=== PATIENT | female | born 1970 | race American Indian/Alaskan Native ===

== ENCOUNTER 2016-08-17 05:36 | Emergency (ER) | payer OTHER ==
[2016-08-17] MEDS ORDERED: DUONEB 0.5 MG-3 MG/3 ML SOLN IH ONE ×2 (06:53→06:55)
[2016-08-17] MEDS ORDERED: NORCO 5/325 PO ONE (08:12)
[2016-08-17] MEDS ORDERED: DELTASONE PO ONE (08:12)
--- NOTE | 2016-08-17 09:43 | XRay Report ---
AP CHEST: HISTORY: Cough AP view of the chest demonstrates a normal mediastinal and cardiac contour with clear lungs and normal bony and soft tissue structures. IMPRESSION: Unremarkable AP chest. No significant change since 11/15/15.
--- NOTE | 2016-08-17 10:20 | Emergency Department Report ---
ED General Adult HPI - General Chief complaint: Adult Asthma Stated complaint: HUGO/ASTHMA Time Seen by Provider: 08/17/16 06:51 Source: patient Mode of arrival: Wheelchair Limitations: No Limitations - History of Present Illness Initial comments: She presents for persistent wheezing. She states she has run out of her medicine. She also states that she was given a prescription for a Z-Vinh on a recent emergency department visit. She does not smoke. She's had no fever or chills. She states her chest is occasionally sore with coughing. She denies pleuritic pain. She denies hemoptysis. She states that she does produce yellow sputum. She's had no leg swelling or pain. -: Gradual, week(s) Location: chest (only on cough) Radiation: non-radiation Quality: other Consistency: intermittent, now resolved Improves with: none Worsens with: other (only on cough) Associated Symptoms: denies other symptoms - Related Data Home Medications Medication Instructions Recorded Confirmed Last Taken Fluticasone/Salmeterol [Advair 1 puff IH BID 07/21/15 08/17/16 11/14/15 Diskus 500-50 mcg] Ipratropium Bath [Atrovent Hfa] 12.9 gm IH BID PRN 07/21/15 08/17/16 11/14/15 Montelukast [Singulair] 10 mg PO QPM 07/21/15 08/17/16 11/14/15 Previous Rx's Medication Instructions Recorded Last Taken Type ALBUTEROL Inhaler [ProAir HFA 2 puff IH QID PRN #1 inha 09/01/15 11/14/15 Rx Inhaler] Ipratropium [Atrovent NEB] 0.5 mg IH Q4HR PRN #20 nebu 11/10/15 11/14/15 Rx Nebulizer Accessories [Aeroneb Go] 1 each QID #1 each 11/10/15 11/14/15 Rx Nebulizer [Minicomp Compressor 1 each QID #1 each 11/10/15 11/14/15 Rx Nebulizer] ALBUTEROL Inhaler [Proair] 2 puff IH QID PRN #1 inhalation 08/17/16 Unknown Rx Albuterol Sulfate [Albuterol 0.63% 0.63 mg IH TID PRN #3 ml 08/17/16 Unknown Rx NEBS] Fluticasone/Salmeterol [Advair 1 puff IH BID #1 disk.w.dev 08/17/16 Unknown Rx Diskus 250-50 mcg] Sulfamethoxazole/Trimethoprim 1 each PO BID #10 tablet 08/17/16 Unknown Rx [Bactrim DS TAB] predniSONE [Deltasone] 40 mg PO QDAY #14 tab 08/17/16 Unknown Rx Allergies Allergy/AdvReac Type Severity Reaction Status Date / Time methylprednisolone sodium Allergy Hives Verified 11/15/15 07:55 succinate [From Solu-Medrol] moxifloxacin HCl Allergy Hives Verified 11/15/15 07:55 [From Avelox] ED Review of Systems ROS: Stated complaint: HUGO/ASTHMA Other details as noted in HPI Constitutional: denies: chills, fever Eyes: denies: eye pain, eye discharge, vision change ENT: denies: ear pain, throat pain Respiratory: cough, wheezing. denies: shortness of breath Cardiovascular: as per HPI, chest pain. denies: palpitations Endocrine: no symptoms reported Gastrointestinal: denies: abdominal pain, nausea, diarrhea Genitourinary: denies: urgency, dysuria, discharge Musculoskeletal: denies: back pain, joint swelling, arthralgia Skin: denies: rash, lesions Neurological: denies: headache, weakness, paresthesias Psychiatric: denies: anxiety, depression Hematological/Lymphatic: denies: easy bleeding, easy bruising ED Past Medical Hx - Past Medical History Previous Medical History?: Yes Hx Hypertension: No Hx Congestive Heart Failure: No Hx Diabetes: No Hx Sickle Cell Disease: No Hx Arthritis: (intubated x 4) Hx Seizures: No Hx Asthma: Yes Hx COPD: No Hx HIV: No Additional medical history: OBESITY. HERNIA X 2 - Surgical History Past Surgical History?: Yes Hx Cholecystectomy: Yes Additional Surgical History: HERNIA SURGERY; C SECTION - Social History Smoking Status: Unknown if ever smoked Substance Use Type: None - Medications Home Medications: Home Medications Medication Instructions Recorded Confirmed Last Taken Type Fluticasone/Salmeterol [Advair 1 puff IH BID 07/21/15 08/17/16 11/14/15 History Diskus 500-50 mcg] Ipratropium Bath [Atrovent Hfa] 12.9 gm IH BID PRN 07/21/15 08/17/16 History Montelukast [Singulair] 10 mg PO QPM 07/21/15 08/17/16 11/14/15 History ALBUTEROL Inhaler [ProAir HFA 2 puff IH QID PRN #1 inha 09/01/15 08/17/16 Rx Inhaler] Ipratropium [Atrovent NEB] 0.5 mg IH Q4HR PRN #20 nebu 11/10/15 08/17/16 Rx Nebulizer Accessories [Aeroneb Go] 1 each QID #1 each 11/10/15 08/17/1611/13 Rx Nebulizer [Minicomp Compressor 1 each QID #1 each 11/10/15 08/17/16 11/14/15 Rx Nebulizer] ALBUTEROL Inhaler [Proair] 2 puff IH QID PRN #1 inhalation 08/17/16 Unknown Rx Albuterol Sulfate [Albuterol 0.63% 0.63 mg IH TID PRN #3 ml 08/17/16 Unknown Rx NEBS] Fluticasone/Salmeterol [Advair 1 puff IH BID #1 disk.w.dev 08/17/16 Unknown Rx Diskus 250-50 mcg] Sulfamethoxazole/Trimethoprim 1 each PO BID #10 tablet 08/17/16 Unknown Rx [Bactrim DS TAB] predniSONE [Deltasone] 40 mg PO QDAY #14 tab 08/17/16 Unknown Rx ED Physical Exam - General Limitations: No Limitations General appearance: alert, in no apparent distress - Head Head exam: Present: atraumatic, normocephalic - Eye Eye exam: Present: normal appearance. Absent: scleral icterus - ENT ENT exam: Present: mucous membranes moist - Neck Neck exam: Present: normal inspection - Respiratory Respiratory exam: Present: normal lung sounds bilaterally. Absent: respiratory distress - Cardiovascular Cardiovascular Exam: Present: regular rate, normal rhythm. Absent: systolic murmur, diastolic murmur, rubs, gallop - GI/Abdominal GI/Abdominal exam: Present: soft, normal bowel sounds - Extremities Exam Extremities exam: Present: normal inspection - Back Exam Back exam: Present: normal inspection - Neurological Exam Neurological exam: Present: alert, oriented X3 - Psychiatric Psychiatric exam: Present: normal affect, normal mood - Skin Skin exam: Present: warm, dry, intact, normal color. Absent: rash ED Course Vital Signs 08/17/16 08/17/16 08/17/16 05:42 06:08 06:22 Temperature 99.5 F 99.5 F Pulse Rate 99 H 90 Pulse Rate [ Bilateral] Respiratory 26 H 22 22 Rate Respiratory Rate [Bilateral ] Blood Pressure 138/95 Blood Pressure 146/88 [Right] O2 Sat by Pulse 100 96 96 Oximetry 08/17/16 08/17/16 08/17/16 07:10 07:25 07:28 Temperature Pulse Rate Pulse Rate [ 91 H 88 84 Bilateral] Respiratory Rate Respiratory 20 19 18 Rate [Bilateral ] Blood Pressure Blood Pressure [Right] O2 Sat by Pulse Oximetry 08/17/16 07:35 Temperature Pulse Rate Pulse Rate [ 91 H Bilateral] Respiratory Rate Respiratory 18 Rate [Bilateral ] Blood Pressure Blood Pressure [Right] O2 Sat by Pulse Oximetry - Reevaluation(s) Reevaluation #1: Given nebs prior to my encounter. The patient had no recurrent wheezing. She has some slight residual rhonchi. However her sat was good. She desired discharge and was released in stable condition. We over her chronic management and return criteria discussed. 08/17/16 10:19 ED Medical Decision Making - Lab Data See Accu-Chek result - Radiology Data interpreted by me: Chest x-ray no acute process Critical care attestation.: If time is entered above; I have spent that time in minutes in the direct care of this critically ill patient, excluding procedure time. ED Disposition Clinical Impression: Asthma exacerbation Chronic bronchitis Qualifiers: Chronic bronchitis type: unspecified Qualified Code(s): J42 - Unspecified chronic bronchitis Disposition: DISCHARGED TO HOME OR SELFCARE Is pt being admited?: No Does the pt Need Aspirin: No Condition: Stable Instructions: Asthma (ED), Chronic Bronchitis (ED) Prescriptions: ALBUTEROL Inhaler [Proair] 2 puff IH QID PRN #1 inhalation PRN Reason: Shortness Of Breath Albuterol Sulfate [Albuterol 0.63% NEBS] 0.63 mg IH TID PRN #3 ml PRN Reason: Wheezing Fluticasone/Salmeterol [Advair Diskus 250-50 mcg] 1 puff IH BID #1 disk.w.dev Sulfamethoxazole/Trimethoprim [Bactrim DS TAB] 1 each PO BID #10 tablet predniSONE [Deltasone] 40 mg PO QDAY #14 tab Referrals: [facility] [Provider Group] - 3-5 Days PRIMARY CARE, [Primary Care Provider] - 2-3 Days Time of Disposition: 10:21
[2016-08-17 10:58] VITALS: BP 138/78
== END 2016-08-17 11:01 | disposition home or self-care (01) ==
LOC: ED 05:36
DX: J45.901 Unspecified asthma with (acute) exacerbation (principal); J44.9 Chronic obstructive pulmonary disease, unspecified; Z90.49 Acquired absence of other specified parts of digestive tract
CPT/HCPCS: 71010; 82962; 94640; 99284; J7512

== ENCOUNTER 2017-11-08 11:52 | Inpatient (IN) | payer OTHER ==
--- NOTE | 2017-11-08 13:11 | Emergency Department Report ---
ED Abdominal Pain HPI - General Chief Complaint: Abdominal Pain Stated Complaint: ABD PAIN Time Seen by Provider: 11/08/17 12:55 Source: EMS Mode of arrival: Stretcher Limitations: No Limitations - History of Present Illness Initial Comments: Patient is a 47-year-old female presents to emergency room with nausea vomiting diarrhea and abdominal pain 1 day. Patient states the pain is worsening. Patient states that the abdominal pain is umbilical and radiates to her left and right side of her abdomen. Patient states she feels feverish at times. patient denies chest pain or shortness of breath. Patient complains of a worsening cough that started 2 days ago. Patient states she has asthma and her asthma is worsening. Patient states the abdominal pain is worse with movement and palpation. Patient states the abdominal pain is better with rest and lying still. Patient states that her cough is better with her asthma medications and sitting up upright. Patient is currently at anchor on a 1013 and has her sitter at bedside MD Complaint: abdominal pain -: Sudden Location: periumbilical Severity scale (0 -10): 10 Quality: cramping, stabbing Consistency: constant Improves With: rest Worsens With: movement Associated Symptoms: denies other symptoms, nausea, vomiting, diarrhea. denies : fever, chills, constipation, dysuria, hematemesis, hematochezia, melena, hematuria, anorexia, syncope - Related Data Home Medications Medication Instructions Recorded Confirmed Last Taken ALPRAZolam [Xanax] 1 mg PO BID 11/08/17 11/08/17 Unknown ARIPiprazole [Abilify] 5 mg PO BID 11/08/17 11/08/17 Unknown Furosemide [Lasix] 20 mg PO QDAY 11/08/17 11/08/17 Unknown HYDROcodone/APAP 5-325 [[place] 1 each PO TID 11/08/17 11/08/17 Unknown 5/325] Nitrofurantoin Macrocrystal 100 mg PO BID 11/08/17 11/08/17 Unknown [Macrodantin] Omeprazole 40 mg PO QAM 11/08/17 11/08/17 Unknown buPROPion XL [Wellbutrin XL] 150 mg PO QAM 11/08/17 11/08/17 Unknown Previous Rx's Medication Instructions Recorded Last Taken Type Fluticasone/Salmeterol [Advair 1 puff IH BID #1 disk.w.dev 01/15/17 Unknown Rx Diskus 250-50 mcg] Allergies Allergy/AdvReac Type Severity Reaction Status Date / Time methylprednisolone sodium Allergy Hives Verified 11/15/15 07:55 succinate [From Solu-Medrol] moxifloxacin HCl Allergy Hives Verified 11/15/15 07:55 [From Avelox] ED Review of Systems ROS: Stated complaint: ABD PAIN Other details as noted in HPI Comment: All other systems reviewed and negative Constitutional: fever. denies: chills Eyes: denies: eye pain, eye discharge, vision change ENT: denies: ear pain, throat pain Respiratory: cough, wheezing. denies: shortness of breath Cardiovascular: denies: chest pain, palpitations Endocrine: no symptoms reported Gastrointestinal: abdominal pain, nausea, diarrhea. denies: constipation, hematemesis, melena Genitourinary: denies: urgency, dysuria, discharge Musculoskeletal: denies: back pain, joint swelling, arthralgia Skin: denies: rash, lesions Neurological: denies: headache, weakness, paresthesias Psychiatric: denies: anxiety, depression Hematological/Lymphatic: denies: easy bleeding, easy bruising ED Past Medical Hx - Past Medical History Previous Medical History?: Yes Hx Hypertension: No Hx Congestive Heart Failure: No Hx Diabetes: No Hx Sickle Cell Disease: No Hx Arthritis: (intubated x 4) Hx Seizures: No Hx Asthma: Yes Hx COPD: No Hx HIV: No Additional medical history: OBESITY. HERNIA X 2 - Surgical History Past Surgical History?: Yes Hx Cholecystectomy: Yes Additional Surgical History: HERNIA SURGERY; C SECTION - Family History Family history: hypertension - Social History Smoking Status: Never Smoker Substance Use Type: Alcohol - Medications Home Medications: Home Medications Medication Instructions Recorded Confirmed Last Taken Type Fluticasone/Salmeterol [Advair 1 puff IH BID #1 disk.w.dev 08/17/16 11/08/17 Unknown Rx Diskus 250-50 mcg] ALPRAZolam [Xanax] 1 mg PO BID 11/08/17 11/08/17 Unknown History ARIPiprazole [Abilify] 5 mg PO BID 11/08/17 11/08/17 Unknown History Furosemide [Lasix] 20 mg PO QDAY 11/08/17 11/08/17 Unknown History HYDROcodone/APAP 5-325 [[place] 1 each PO TID 11/08/17 11/08/17 Unknown History 5/325] Nitrofurantoin Macrocrystal 100 mg PO BID 11/08/17 11/08/17 Unknown History [Macrodantin] Omeprazole 40 mg PO QAM 11/08/17 11/08/17 Unknown History buPROPion XL [Wellbutrin XL] 150 mg PO QAM 11/08/17 11/08/17 Unknown History ED Physical Exam - General Limitations: No Limitations General appearance: alert, in no apparent distress - Head Head exam: Present: atraumatic, normocephalic - Eye Eye exam: Present: normal appearance - ENT ENT exam: Present: mucous membranes moist - Neck Neck exam: Present: normal inspection - Respiratory Respiratory exam: Present: normal lung sounds bilaterally. Absent: respiratory distress - Cardiovascular Cardiovascular Exam: Present: regular rate, normal rhythm. Absent: systolic murmur, diastolic murmur, rubs, gallop - GI/Abdominal GI/Abdominal exam: Present: soft, tenderness (umbilical and periumbilical tenderness to palpation. ), normal bowel sounds, hernia (umbilical hernia noted and not reducible and extremely tender to palpation) - Extremities Exam Extremities exam: Present: normal inspection - Back Exam Back exam: Present: normal inspection - Neurological Exam Neurological exam: Present: alert, oriented X3 - Psychiatric Psychiatric exam: Present: normal affect, normal mood - Skin Skin exam: Present: warm, dry, intact, normal color. Absent: rash ED Course Vital Signs 11/08/17 11/08/17 11/08/17 12:29 12:32 12:45 Temperature 99.3 F Pulse Rate 97 H Respiratory Rate Blood Pressure 126/64 123/74 114/72 O2 Sat by Pulse 96 96 Oximetry 11/08/17 11/08/17 11/08/17 13:00 13:15 13:31 Temperature Pulse Rate 92 H Respiratory 15 Rate Blood Pressure 110/72 107/69 114/72 O2 Sat by Pulse 92 93 95 Oximetry 11/08/17 11/08/17 11/08/17 13:45 13:55 14:00 Temperature Pulse Rate 94 H 89 Respiratory 24 33 H 32 H Rate Blood Pressure 114/72 103/57 O2 Sat by Pulse 96 98 93 Oximetry 04/08/18 04/08/18 04/08/18 15:01 16:00 16:42 Temperature Pulse Rate 84 Respiratory Rate Blood Pressure 103/57 108/79 O2 Sat by Pulse 98 95 Oximetry 11/08/17 11/08/17 17:00 18:00 Temperature Pulse Rate Respiratory Rate Blood Pressure 102/48 116/74 O2 Sat by Pulse 87 98 Oximetry - Reevaluation(s) Reevaluation #1: Dr Foley consulted for non-reducible umbilica hernia and abd pain. Dr Foley recommends admission to the hospitalist and have the hospitalist consult her for evaluation and treatment. 11/08/17 15:34 Reevaluation #2: Hospitalist consulted for admission. All results discussed with the patient and patient agree with plan of care. 11/08/17 15:37 Reevaluation #3: 1013 signed due to the fact that the patient is currently at a psych facility for suicidal ideations and treatment 11/08/17 17:00 ED Medical Decision Making - Lab Data Result diagrams: 11/08/17 13:05 11/08/17 13:05 Critical care attestation.: If time is entered above; I have spent that time in minutes in the direct care of this critically ill patient, excluding procedure time. Critical Care Time: 45 minutes spent for critical care time ED Disposition Clinical Impression: Incarcerated umbilical hernia, Anemia, Abdominal pain, Cough, Asthma exacerbation Disposition: OP ADMIT IP TO THIS HOSP Is pt being admited?: Yes Does the pt Need Aspirin: No Time of Disposition: 15:45
[2017-11-08 13:25] LABS: Basophils % (Auto) 0.1 % (0.0-1.8); Eosinophils # (Auto) 0.5 K/mm3 (0.0-0.4); Eosinophils % (Auto) 4.4 % (0.0-4.3); Hematocrit 31.7 % (30.3-42.9); Hemoglobin 9.8 gm/dl (10.1-14.3); Lymphocytes # (Auto) 1.1 K/mm3 (1.2-5.4); Lymphocytes % (Auto) 9.8 % (13.4-35.0); Mean Corpuscular HGB Conc 31 % (30-34); Mean Corpuscular Hemoglobin 22 pg (28-32); Mean Corpuscular Volume 70 fl (79-97); Monocytes # (Auto) 0.7 K/mm3 (0.0-0.8); Monocytes % (Auto) 6.5 % (0.0-7.3); Platelet Count 147 K/mm3 (140-440); Red Blood Count 4.51 M/mm3 (3.65-5.03); Red Cell Distribution Width 16.4 % (13.2-15.2)
[2017-11-08 13:44] LABS: Alanine Aminotransferase 18 units/L (7-56); Albumin 3.5 g/dL (3.9-5); BUN/Creatinine Ratio 13; Blood Urea Nitrogen 9 mg/dL (7-17); Calcium 8.3 mg/dL (8.4-10.2); Hemolysis Index 0; Lipase 11 units/L (13-60)
[2017-11-08] MEDS ORDERED: TORADOL ONE (13:59)
[2017-11-08] MEDS ORDERED: TORADOL IV ONE (13:59)
[2017-11-08 14:38] LABS: Bacteria,Urine 1+ /HPF (Negative); Bilirubin,Urine NEG (Negative); Blood,Urine NEG (Negative); Color,Urine Yellow (Yellow); Protein,Urine <15 mg/dL mg/dL (Negative); Urobilinogen,Urine < 2.0 mg/dL (<2.0)
--- NOTE | 2017-11-08 14:42 | Cat Scan Report ---
FINAL REPORT PROCEDURE: CT ABDOMEN PELVIS WO CON TECHNIQUE: Computerized axial tomography of the abdomen and pelvis was performed without intravenous contrast. This study is performed without intravascular contrast material and its sensitivity for abdominal and pelvic pathology, including neoplasms, inflammation, abscess, free fluid, thrombosis, arterial dissection and infarction, is reduced compared with a contrast enhanced study. HISTORY: abd pain COMPARISON: No prior studies are available for comparison. FINDINGS: Lower Lung mcclure: There are minimal linear bands of atelectasis visualized. Lung bases otherwise are. Upper Abdomen: Moderate size hiatal hernia is present. The liver showed no focal abnormalities. The gallbladder is surgically absent. The adrenal glands, the pancreas and the spleen are unremarkable. Kidneys, Ureters and Urinary bladder: There are 2 nonobstructing calculi in the upper half of the right kidney, 1 measures 1.4 x 1.0 centimeter the other 4.7 millimeters. The right kidney and right ureter otherwise are unremarkable. Left kidney left ureter and urinary bladder show no focal abnormalities. Retroperitoneum: Atherosclerotic changes are seen in the abdominal aorta. No aneurysm is visualized. Nonspecific subcentimeter lymph nodes are seen in the retroperitoneum. No pathologically enlarged lymph nodes are identified. Bowel: Mild diverticulosis is seen in the sigmoid colon without evidence of diverticulitis. Mild diverticulosis also seen in the transverse colon without evidence of diverticulitis. The appendix is not visualized. No evidence of bowel obstruction ascites or free intraperitoneal gas. Anterior pelvic wall hernia visualized with at least 2 orifice both containing adipose tissue and portions of loops of small bowel. Reproductive organs: Uterus is deviated to the right of midline otherwise unremarkable. No abnormal adnexal masses are identified. Other: No acute bony abnormalities are seen. IMPRESSION: Moderate size hiatal hernia present. Moderate-sized anterior pelvic wall hernia with at least 2 orifice containing adipose tissue and loops of small bowel without obstruction.. Prior cholecystectomy. Nonobstructing renal calculi right kidney as described.
--- NOTE | 2017-11-08 14:46 | XRay Report ---
FINAL REPORT EXAM: XR CHEST 1V AP HISTORY: cough TECHNIQUE: upright single view chest PRIORS: None. FINDINGS: Cardiac and mediastinal contours are unremarkable. No focal pulmonary infiltrate is identified. No pleural fluid collection seen. Pulmonary vasculature is unremarkable. IMPRESSION: Negative single-view chest
[2017-11-08] MEDS ORDERED: ZOFRAN IV ONE (15:40)
[2017-11-08] MEDS ORDERED: DILAUDID IV ONE (15:40)
[2017-11-08] MEDS ORDERED: ZOFRAN ONE (15:41)
[2017-11-08] MEDS ORDERED: DUONEB *Not for PRN Use IH ONE (15:41)
--- NOTE | 2017-11-08 15:53 | History and Physical Report ---
History of Present Illness Chief complaint: My stomach hurts History of present illness: 47 YO Female with Asthma, Obesity Hypoventillation Syndrome presents to ED for evaluation. Pt states that she has experienced Abdominal pain for the past 1 week, with worsening symptoms over the past 1 day. Pt acknowledges Nausea, Vomiting, and multiple episodes of loose stools with bloody bowel movements as well as a productive cough of yellow sputum. Pt denies BRBPR, CP, Palpitations, Syncope, Productive cough, unintentional weight loss, or night sweats. Pt seen and evaluated in ED and found to have incarcerated ventral hernia complicated by SIRS, as well as respiratory failure secondary to obesity hypoventillation. Surgery team consulted in ED. Pt admitted to medical floor. Past History Past Surgical History: cholecystectomy, , hernia repair Social history: single. denies: smoking, alcohol abuse, prescription drug abuse Family history: hypertension Medications and Allergies Allergies Allergy/AdvReac Type Severity Reaction Status Date / Time methylprednisolone sodium Allergy Hives Verified 11/15/15 07:55 succinate [From Solu-Medrol] moxifloxacin HCl Allergy Hives Verified 11/15/15 07:55 [From Avelox] Home Medications Medication Instructions Recorded Confirmed Last Taken Type Fluticasone/Salmeterol [Advair 1 puff IH BID #1 disk.w.dev 08/17/16 11/08/17 Unknown Rx Diskus 250-50 mcg] ALPRAZolam [Xanax] 1 mg PO BID 11/08/17 11/08/17 Unknown History ARIPiprazole [Abilify] 5 mg PO BID 11/08/17 11/08/17 Unknown History Furosemide [Lasix] 20 mg PO QDAY 11/08/17 11/08/17 Unknown History HYDROcodone/APAP 5-325 [[place] 1 each PO TID 11/08/17 11/08/17 Unknown History 5/325] Nitrofurantoin Macrocrystal 100 mg PO BID 11/08/17 11/08/17 Unknown History [Macrodantin] Omeprazole 40 mg PO QAM 11/08/17 11/08/17 Unknown History buPROPion XL [Wellbutrin XL] 150 mg PO QAM 11/08/17 11/08/17 Unknown History Review of Systems Constitutional: fever, no weight loss, no weight gain, no chills, no sweats Ears, nose, mouth and throat: no ear pain, no ear discharge, no tinnitis, no decreased hearing, no nose pain, no nasal congestion, no nasal discharge Breasts: no change in shape, no swelling, no mass Cardiovascular: no chest pain, no orthopnea, no palpitations, no rapid/ irregular heart beat Respiratory: cough with sputum, shortness of breath Gastrointestinal: abdominal pain, nausea, vomiting, diarrhea, BRBPR, no melena, no hematochezia, no loss of appetite, no early satiety Genitourinary Female: no dysmenorrhea, no pelvic pain, no menorrhagia, no dysuria, no urinary frequency Rectal: no pain, no incontinence, no bleeding Musculoskeletal: no neck stiffness, no neck pain, no shooting arm pain, no arm numbness/tingling, no low back pain, no shooting leg pain, no leg numbness/ tingling, no redness of joints Integumentary: no rash, no pruritis, no redness, no sores, no wounds, no jaundice Neurological: no head injury, no transient paralysis, no paralysis, no weakness , no parathesias, no numbness, no tingling, no seizures, no syncope Psychiatric: no anxiety, no memory loss, no change in sleep habits, no sleep disturbances, no insomnia, no hypersomnia, no change in appetite, no change in libido, no suicidal ideation Endocrine: no cold intolerance, no heat intolerance, no polyphagia, no excessive thirst, no polydipsia, no polyuria, no nocturia, no excessive sweating Hematologic/Lymphatic: no easy bruising, no easy bleeding, no lymphadenopathy, no lymphedema Allergic/Immunologic: no urticaria, no allergic rhinitis, no wheezing, no persistent infections, no anaphylaxis Exam - Constitutional Vitals: Temp Pulse Resp BP Pulse Ox 99.3 F 89 32 H 103/57 93 11/08/17 12:29 11/08/17 14:00 11/08/17 14:00 11/08/17 14:00 11/08/17 14:00 General appearance: Present: mild distress, obese - EENT Eyes: Present: PERRL ENT: hearing intact, clear oral mucosa - Neck Neck: Present: supple, normal ROM - Respiratory Respiratory effort: normal Respiratory: bilateral: diminished, wheezing - Cardiovascular Heart Sounds: Present: S1 & S2. Absent: rub, click - Extremities Extremities: pulses symmetrical, No edema Peripheral Pulses: within normal limits - Abdominal General gastrointestinal: Present: soft, tender, non-distended Localized gastrointestinal: tender: epigastric periumbilical - Rectal Rectal Exam: normal exam-external/orifice - Integumentary Integumentary: Present: clear, warm, dry - Musculoskeletal Musculoskeletal: gait normal, strength equal bilaterally - Psychiatric Psychiatric: appropriate mood/affect, intact judgment & insight - Neurologic Neurologic: CNII-XII intact, moves all extremities Results - Labs CBC & Chem 7: 11/08/17 13:05 11/08/17 13:05 Labs: Abnormal lab results 11/08/17 11/08/17 11/08/17 Range/Units 13:05 13:05 13:16 WBC 11.3 H (4.5-11.0) K/mm3 Hgb 9.8 L (10.1-14.3) gm/dl MCV 70 L (79-97) fl MCH 22 L (28-32) pg RDW 16.4 H (13.2-15.2) % Lymph % (Auto) 9.8 L (13.4-35.0) % Eos % (Auto) 4.4 H (0.0-4.3) % Lymph # 1.1 L (1.2-5.4) K/mm3 Eos # 0.5 H (0.0-0.4) K/mm3 Seg Neutrophils % 79.2 H (40.0-70.0) % Seg Neutrophils # 9.0 H (1.8-7.7) K/mm3 Chloride 95.2 L (98-107) mmol/L Glucose 133 H (65-100) mg/dL Calcium 8.3 L (8.4-10.2) mg/dL Albumin 3.5 L (3.9-5) g/dL Lipase 11 L (13-60) units/L Urine pH 8.0 H (5.0-7.0) Assessment and Plan - Patient Problems (1) SIRS (systemic inflammatory response syndrome) Current Visit: Yes Status: Acute Plan to address problem: IV antibiotics, Chest X ray, UTI, CT abdomen pelvis, supportive care. (2) Umbilical hernia, incarcerated Current Visit: Yes Status: Acute Plan to address problem: Surgery consulted, NPO after midnight, possible surgical intervention in AM. (3) Respiratory failure Current Visit: Yes Status: Acute Qualifiers: Chronicity: acute Respiratory failure complication: hypoxia Qualified Code(s): J96.01 - Acute respiratory failure with hypoxia Plan to address problem: Suplemental oxygen, nebulizer therapy, aspiration precautions, incentive spirometry, NIPPV as clinically indicated. (4) Asthma exacerbation Current Visit: Yes Status: Acute Plan to address problem: supplemental oxygen, nebulizer therapy, inhaled steroids, IV antibiotics, pulse oximetry (5) DVT prophylaxis Current Visit: Yes Status: Acute Plan to address problem: SCD to BLE while in bed,
[2017-11-08] MEDS ORDERED: SODIUM CHLORIDE FLUSH SYRINGE 10 ML IV PRN (16:28)
[2017-11-08] MEDS ORDERED: ZOFRAN IV PRN (16:28)
[2017-11-08] MEDS ORDERED: ZITHROMAX 500 MG in NACL 0.9% 250ML 250 ML IV SCH (17:00)
--- NOTE | 2017-11-08 17:01 | Consultation ---
History of Present Illness Consult date: 11/08/17 Chief complaint: abd pain, hernia - History of present illness History of present illness: 47 yo F with hx of asthma, COPD, obesity presents to ER from psychiatric facility for abdominal pain. She states she has had a left sided abdominal hernia for 1 year. This has started to cause her pain for the last several days. She is on lortab for the chronic pain but this has not been helping recently. The pain is constant, sharp, and radiates to the rest of the abdomen. She admits to n/v, and diarrhea. She states she notes blood in her BMs. She was able to have dinner last night. This exacerbated the pain. She states she has been having low grade fevers and was also recently diagnosed with a UTI for which she has been on bactrim for 2 days. At this time she denies n/v and is hungry. She denies cp, sob. She has a productive cough of yellow sputum. Patient has been in the psychiatric facility for the last week or so for suicidal ideations. Currently she does not admit to wanting to hurt herself. Past History Past Medical History: COPD, other (obesity, asthma, anxiety, suicidal ideations) Past Surgical History: cholecystectomy, , Other (exlap for incarcerated hernia) Social history: alcohol abuse (social). denies: smoking Family history: no significant family history Medications and Allergies Allergies Allergy/AdvReac Type Severity Reaction Status Date / Time methylprednisolone sodium Allergy Hives Verified 11/15/15 07:55 succinate [From Solu-Medrol] moxifloxacin HCl Allergy Hives Verified 11/15/15 07:55 [From Avelox] Home Medications Medication Instructions Recorded Confirmed Last Taken Type Fluticasone/Salmeterol [Advair 1 puff IH BID #1 disk.w.dev 08/17/16 11/08/17 Unknown Rx Diskus 250-50 mcg] ALPRAZolam [Xanax] 1 mg PO BID 11/08/17 11/08/17 Unknown History ARIPiprazole [Abilify] 5 mg PO BID 11/08/17 11/08/17 Unknown History Furosemide [Lasix] 20 mg PO QDAY 11/08/17 11/08/17 Unknown History HYDROcodone/APAP 5-325 [[place] 1 each PO TID 11/08/17 11/08/17 Unknown History 5/325] Nitrofurantoin Macrocrystal 100 mg PO BID 11/08/17 11/08/17 Unknown History [Macrodantin] Omeprazole 40 mg PO QAM 11/08/17 11/08/17 Unknown History buPROPion XL [Wellbutrin XL] 150 mg PO QAM 11/08/17 11/08/17 Unknown History Active Meds: Active Medications Acetaminophen (Tylenol) 650 mg PO Q4H PRN PRN Reason: Pain MILD(1-3)/Fever >100.5/MELENDEZ Albuterol (Proventil) 2.5 mg IH Q4HRT PRN PRN Reason: Shortness Of Breath Budesonide (Pulmicort) 0.5 mg IH Q12HRT [facility] Azithromycin 500 mg/ Sodium (Chloride) 250 mls @ 250 mls/hr IV Q24H [facility] Methylprednisolone Sodium Succinate (Solu-Medrol) 40 mg IV Q12H [facility] Methylprednisolone Sodium Succinate (Solu-Medrol) 125 mg IV ONCE ONE Stop: 11/08/17 17:01 Montelukast Sodium (Singulair) 10 mg PO QPM [facility] Ondansetron HCl (Zofran) 4 mg IV Q8H PRN PRN Reason: Nausea And Vomiting Oxycodone/Acetaminophen (Percocet 5/325) 1 tab PO Q6H PRN PRN Reason: Pain, Moderate (4-6) Sodium Chloride (Sodium Chloride Flush Syringe 10 Ml) 10 ml IV BID [facility] Sodium Chloride (Sodium Chloride Flush Syringe 10 Ml) 10 ml IV PRN PRN PRN Reason: LINE FLUSH Review of Systems All systems: negative (10 point ROS performed and negative except for listed above in HPI) Exam Vital Signs Temp Pulse BP Pulse Ox 99.3 F 97 H 126/64 96 11/08/17 12:29 11/08/17 12:29 11/08/17 12:29 11/08/17 12:29 Narrative exam: Gen: AAOx3. NAD CV: S1, S2+, no m/r/g Resp: +expiratory wheezes b/l Abd: soft, obese, generalized TTP. Left sided abdominal wall hernia soft, tender to palpation, no skin changes. Reducible but reoccurs. No r/r/g. Well healed surgical scar. Ext: no c/c/e Results - Labs 11/08/17 13:05 11/08/17 13:05 Abnormal lab results 11/08/17 11/08/17 11/08/17 Range/Units 13:05 13:05 13:16 WBC 11.3 H (4.5-11.0) K/mm3 Hgb 9.8 L (10.1-14.3) gm/dl MCV 70 L (79-97) fl MCH 22 L (28-32) pg RDW 16.4 H (13.2-15.2) % Lymph % (Auto) 9.8 L (13.4-35.0) % Eos % (Auto) 4.4 H (0.0-4.3) % Lymph # 1.1 L (1.2-5.4) K/mm3 Eos # 0.5 H (0.0-0.4) K/mm3 Seg Neutrophils % 79.2 H (40.0-70.0) % Seg Neutrophils # 9.0 H (1.8-7.7) K/mm3 Chloride 95.2 L (98-107) mmol/L Glucose 133 H (65-100) mg/dL Calcium 8.3 L (8.4-10.2) mg/dL Albumin 3.5 L (3.9-5) g/dL Lipase 11 L (13-60) units/L Urine pH 8.0 H (5.0-7.0) Diabetes panel 11/08/17 Range/Units 13:05 Sodium 137 (137-145) mmol/L Potassium 4.4 (3.6-5.0) mmol/L Chloride 95.2 L (98-107) mmol/L Carbon Dioxide 29 (22-30) mmol/L BUN 9 (7-17) mg/dL Creatinine 0.7 (0.7-1.2) mg/dL Glucose 133 H (65-100) mg/dL Calcium 8.3 L (8.4-10.2) mg/dL AST 23 (5-40) units/L ALT 18 (7-56) units/L Alkaline Phosphatase 48 (35-129) units/L Total Protein 6.5 (6.3-8.2) g/dL Albumin 3.5 L (3.9-5) g/dL Calcium panel 11/08/17 Range/Units 13:05 Calcium 8.3 L (8.4-10.2) mg/dL Albumin 3.5 L (3.9-5) g/dL Pituitary panel 11/08/17 Range/Units 13:05 Sodium 137 (137-145) mmol/L Potassium 4.4 (3.6-5.0) mmol/L Chloride 95.2 L (98-107) mmol/L Carbon Dioxide 29 (22-30) mmol/L BUN 9 (7-17) mg/dL Creatinine 0.7 (0.7-1.2) mg/dL Glucose 133 H (65-100) mg/dL Calcium 8.3 L (8.4-10.2) mg/dL Adrenal panel 11/08/17 Range/Units 13:05 Sodium 137 (137-145) mmol/L Potassium 4.4 (3.6-5.0) mmol/L Chloride 95.2 L (98-107) mmol/L Carbon Dioxide 29 (22-30) mmol/L BUN 9 (7-17) mg/dL Creatinine 0.7 (0.7-1.2) mg/dL Glucose 133 H (65-100) mg/dL Calcium 8.3 L (8.4-10.2) mg/dL Total Bilirubin 0.60 (0.1-1.2) mg/dL AST 23 (5-40) units/L ALT 18 (7-56) units/L Alkaline Phosphatase 48 (35-129) units/L Total Protein 6.5 (6.3-8.2) g/dL Albumin 3.5 L (3.9-5) g/dL - Imaging CT scan - abdomen: report reviewed, image reviewed CT scan - pelvis: report reviewed, image reviewed Assessment and Plan 47 yo F with chronically incarcerated ventral hernia, obesity Plan: 1. ok to start diet, NPO p [place] 2. CT scan reviewed and compared with CT from 2015. Patient has same ventral hernia containing loops of bowel. No signs of obstruction, bowel wall thickening , or signs of bowel compromise on current CT A/P. Radiology report reviewed. 3. repeat labs in am 4. gently IVF hydration 5. PRN pain and nausea control 6. nebs and pulm toilet 7. does not need standing abx from surgical standpoint 8. DVT ppx 9. will plan for OR tomorrow 11/09. I discussed this with the patient. Laparoscopic, possible open ventral hernia repair, with mesh. D/W Dr. Espitia
[2017-11-08] MEDS ORDERED: LOVENOX SUB-Q ONE (17:34)
[2017-11-08] MEDS: LOVENOX SUB-Q SCH (18:14)
[2017-11-08] MEDS: SINGULAIR PO SCH (18:40)
[2017-11-08] MEDS: PERCOCET 5/325 PO PRN (18:47)
[2017-11-08] MEDS: PULMICORT IH SCH (20:07)
[2017-11-09] MEDS: PERCOCET 5/325 PO PRN ×2 (00:25→09:09)
[2017-11-09] MEDS: SODIUM CHLORIDE FLUSH SYRINGE 10 ML IV SCH ×3 (00:32→23:44)
[2017-11-09] MEDS: PULMICORT IH SCH ×2 (07:42→20:05)
[2017-11-09] MEDS: PROVENTIL IH PRN (07:42)
[2017-11-09] MEDS: LOVENOX SUB-Q SCH (09:48)
[2017-11-09] MEDS ORDERED: LASIX PO SCH (10:00)
[2017-11-09] MEDS ORDERED: NON-FORMULARY (Omeprazole [Omeprazole] 40 MG) PO SCH (10:00)
[2017-11-09] MEDS ORDERED: NON-FORMULARY (Fluticasone/Salmeterol [Advair Diskus 250-50 Mcg] 1 PUFF) IH SCH (10:00)
[2017-11-09] MEDS ORDERED: PROTONIX PO SCH (10:00)
[2017-11-09] MEDS ORDERED: ARIPIPRAZOLE 5 MG PO SCH (10:00)
[2017-11-09] MEDS ORDERED: MARCAINE 0.5% INFILTRATI ONE (10:21)
--- NOTE | 2017-11-09 11:12 | Anesthesia Day of Surgery ---
Anesthesia Day of Surgery - Day of Surgery Patient Examined: Yes Patient H&P Reviewed: Yes Patient is NPO: Yes
[2017-11-09] MEDS ORDERED: ZOFRAN IV PRN (11:13)
[2017-11-09] MEDS ORDERED: DILAUDID IV PRN ×2 (11:13→15:37)
--- NOTE | 2017-11-09 11:13 | Anesthesia Consultation ---
Anesthesia Consult and Med Hx - Airway Anesthetic Teeth Evaluation: Poor ROM Head & Neck: Adequate Mental/Hyoid Distance: Adequate Mallampati Class: Class III Intubation Access Assessment: Probably Good - Pulmonary Exam CTA: No (given albuterol neb for wheeze) - Cardiac Exam Cardiac Exam: RRR - Pre-Operative Health Status ASA Pre-Surgery Classification: ASA3 Proposed Anesthetic Plan: General - Pulmonary Hx Smoking: No Hx Asthma: Yes COPD: No Hx Pneumonia: No Hx Sleep Apnea: Yes (non compliant with CPAP) - Cardiovascular System Hx Hypertension: No - Central Nervous System Hx Seizures: No CVA: No Hx Psychiatric Problems: Yes (current resident at [facility] on a 1013) - Gastrointestinal Hx Gastroesophageal Reflux Disease: Yes - Endocrine Hx End Stage Renal Disease: No Hx Insulin Dependent Diabetes: No - Hematic Hx Anemia: No Hx Sickle Cell Disease: No - Other Systems Hx Cancer: No Hx Obesity: Yes (morbid obesity, BMI 43)
[2017-11-09] MEDS ORDERED: PROVENTIL IH NR (11:15)
[2017-11-09] MEDS: LACTATED RINGERS 1,000 ML IV SCH ×2 (11:46→21:43)
[2017-11-09] MEDS ORDERED: PEPCID IV NR (12:00)
[2017-11-09] MEDS ORDERED: ANCEF/STERILE WATER 2 GM/20 ML IV NR (12:00)
[2017-11-09] MEDS ORDERED: ceFAZolin 2 GM in NACL 0.9% 100 ML IV ONE (12:00)
[2017-11-09] MEDS ORDERED: VERSED IV NR (12:00)
[2017-11-09] MEDS ORDERED: XYLOCAINE MPF 2% ONE (12:18)
[2017-11-09] MEDS ORDERED: DIPRIVAN 10 MG/ML IV ONE (12:18)
[2017-11-09] MEDS ORDERED: NEOSTIGMINE ONE (12:19)
[2017-11-09] MEDS ORDERED: ZOFRAN ONE (12:19)
[2017-11-09] MEDS ORDERED: ROBINUL ONE (12:19)
[2017-11-09] MEDS ORDERED: NEO SYNEPHRINE/NS Syringe(OR USE) IV ONE (12:19)
[2017-11-09] MEDS ORDERED: ZEMURON IV ONE ×2 (12:19)
[2017-11-09] MEDS ORDERED: SUBLIMAZE ONE (12:22)
--- NOTE | 2017-11-09 13:44 | Progress Note ---
Assessment and Plan / SIRS (systemic inflammatory response syndrome) Likely from incarcerated ventral hernia Continue abx IV fluids Follow blood culture Plan for surgery today, /Umbilical hernia, incarcerated Surgery consulted, Patient is NPO after midnight, surgical intervention today. /Acute Respiratory failure Likely from asthma exacerbation Suplemental oxygen, nebulizer therapy, aspiration precautions /Acute Asthma exacerbation Continue supplemental oxygen, nebulizer therapy, inhaled steroids, IV antibiotics, Monitor with pulse oximetry / DVT prophylaxis SCD to BLE while in bed, Brief history: 47 yo F with hx of asthma, COPD, obesity presents to ER from psychiatric facility for abdominal pain. She states she has had a left sided abdominal hernia for 1 year. She has been having low grade fevers and was also recently diagnosed with a UTI for which she has been on bactrim for 2 days. Patient has been in the psychiatric facility for the last week or so for suicidal ideations. Currently she does not admit to wanting to hurt herself. In the ER workup showed incarcerated ventral hernia with elevated white count tachycardia and tachypnea. Radiological test: Chest x-ray: No infiltrates Abdomen and pelvis CT contrast: Moderate sized anterior pelvic wall hernia with at least 2 orifice containing adipose tissue and loops of small bowel without obstruction. s/p Cholecystectomy, nonobstructing renal calculi on right kidney. Hospitalist Physical exam: GENERAL: Obese female lying on bed appeared to be in no discomfort. HEENT: Normocephalic. Atraumatic. No conjunctival congestion or icterus. Patient has moist mucous membranes. NECK: Supple. Trachea midline. CHEST/LUNGS: Clear to auscultated bilaterally, breathing nonlabored. No wheezes crackles or rhonchi. HEART/CARDIOVASCULAR: Regular in rate and rhythm. S1 and S2 positive. ABDOMEN: Abdomen is soft, generalized tenderness on palpation. Left sided abdominal wall hernia soft, tender to palpation, no skin changes. Reducible but reoccurs. SKIN: There is no rash. Warm and dry. NEURO: No focal motor deficit. Follows command. MUSCULOSKELETAL: No joint effusion or tenderness. EXTRIMITY: No edema, no cyanosis or clubbing. PSYCH: Cooperative. Subjective Date of service: 11/09/17 Interval history: Patient seen and examined. Medical records and medication list reviewed. No acute event overnight noted by the RN. Patient seen at the preop area Objective - Constitutional Vitals: Vital Signs - 12hr 11/09/17 11/09/17 11/09/17 07:27 07:44 07:45 Temperature 98.5 F Pulse Rate 92 H Pulse Rate [ 90 Anterior] Respiratory 18 Rate Respiratory 18 Rate [Anterior] Blood Pressure 94/58 O2 Sat by Pulse 87 96 Oximetry 11/09/17 11/09/17 07:49 10:55 Temperature 99.2 F Pulse Rate 95 H Pulse Rate [ 94 H Anterior] Respiratory 20 Rate Respiratory 18 Rate [Anterior] Blood Pressure 105/75 O2 Sat by Pulse 100 Oximetry - Labs CBC & Chem 7: 11/08/17 13:05 11/08/17 13:05 Labs: Abnormal lab results 11/08/17 11/08/17 Range/Units 13:05 13:16 Chloride 95.2 L (98-107) mmol/L Glucose 133 H (65-100) mg/dL Calcium 8.3 L (8.4-10.2) mg/dL Albumin 3.5 L (3.9-5) g/dL Lipase 11 L (13-60) units/L Urine pH 8.0 H (5.0-7.0)
[2017-11-09] MEDS: BROVANA NEBU IH SCH ×2 (13:58→20:05)
[2017-11-09] MEDS ORDERED: LEVAQUIN 750MG/150ML 750 MG/150 ML BAG IV SCH (14:00)
[2017-11-09] MEDS ORDERED: cefTRIAXone 1 GM in NACL 0.9% 20 ML IV SCH (16:00)
[2017-11-09] MEDS ORDERED: NACL 0.9% 100 ML ONE (17:27)
[2017-11-09] MEDS ORDERED: DILAUDID ONE (18:09)
[2017-11-09] MEDS ORDERED: TESSALON PERLES PO PRN (18:24)
--- NOTE | 2017-11-09 18:56 | Operative Report ---
Operative Report Operative Report: Date of surgery: 11/09/17 Preoperative diagnosis: incarcerated ventral hernia Postoperative diagnosis: multiple ventral hernias, incarcerated ventral hernias Procedure: Robotic assisted laparoscopic lysis of adhesions, reduction of incarcerated ventral hernias, repair of ventral hernias with mesh Surgeon: Tonie Foley DO Cotton Grader: Eulalia Dickey MD Anesthesia: GETA, local EBL: minimal Urine output: 400cc Implant: [id number] parietex composite mesh Complications: none Disposition: stable to pacu HPI and indication: 47 yo F with hx of abdominal wall hernia for 1-2 years presents with c/o severe abdominal pain, increasing over the last 1 week, localized over the area of her known hernia. The patient states she had nausea and 1 episode of emesis. On exam, there were 2 left sided abdominal wall hernias which were tender but soft and reducible. CT scan showed 2 ventral hernias containing small bowel, without evidence of obstruction. The patient was hydrated over night. She was consented for robotic assisted laparoscopic, possible open Ventral hernia repair, possible mesh, possible bowel resection. All risks, benefits, and alternatives were discussed with the patient and she agreed to proceed. Procedure in detail: The patient was identified in the preoperative area and taken back to the operating room and placed on the operating room table in supine position. After anesthesia was induced, a West catheter was sterilely placed by the circulating nurse. The abdomen was then prepped and draped in usual sterile fashion and a timeout was performed. Local anesthetic was infiltrated into all skin incisions. The abdomen was insufflated via a varies needle in the left upper quadrant. The position of the varies needle was confirmed using the saline drop test. The abdomen was insufflated to 15 mmHg and a varies needle removed. A 5 mm incision was made in the left upper quadrant and a 5 mm Optiview trocar was inserted through this incision. Abdomen was inspected there was no underlying injury to any of the abdominal contents. There was evidence of adhesions from the omentum and bowel to the anterior abdominal wall. The patient was then placed in jackknife position and tilted towards the left. 2, 8 mm robotic trocars were placed under direct visualization, the first in the right upper quadrant and the second in the right lower quadrant. A 12 mm balloon trocar was placed in the right mid abdomen laterally. The robot was then docked in the usual fashion. First, adhesiolysis was performed and omentum and small bowel adhesions to the anterior abdominal wall were taken down using a combination of blunt and sharp dissection, as well as monopolar scissors. Multiple hernia defects were encountered in the left and mid abdomen. Small bowel and omentum incarcerated in the hernias was reduced with great care. Furthermore, adhesions from the small bowel and omentum to the lateral abdominal wall were taken down bluntly and using monopolar scissors in order to create room for mesh placement. The falciform ligament was also taken down using electrocautery in order to create space for the mesh. Total time for lysis of adhesions was approximately 45 minutes. There were 6 fascial defects seen of varying sizes. The total surface area of the hernia border measured from the outside of the abdominal wall was approximately 12cm x 26cm. a 20 cm x 30 cm parietex composite mesh was selected to repair the hernia. The 5 mm left upper quadrant trocar was replaced with a 12 mm trocar under direct visualization. A tagging suture was placed on the bowel side of the mesh. The mesh was rolled and placed into the 12mm left upper quadrant psychologist research assistant trocar. This was unrolled and positioned in order to cover all defects. The mesh was sutured into place circumferentially using 3-0 V loc suture. This portion of the procedure was prolonged secondary to the need to use a very large mesh to cover all the defects. Once the mesh was sutured in circumferentially, the abdomen and was inspected and no injury seen to the small bowel or omentum. Hemostasis was carefully achieved during the entire dissection and ensured at the end of the case with inspection. The robot was then undocked and the 12 mm right mid abdominal trocar fascia was closed with interrupted 0 Vicryl suture using the Levi Edge device. The left upper quadrant 12 mm trocar fascial defect was incorporated into the mesh repair. The remaining trocars removed under direct visualization and the abdomen slowly desufflated. Mesh was seen to lay flat. The skin incisions were closed with 4-0 Monocryl subcuticular stitches and skin glue. At the end of the case, all sponge, instrument, sharp counts were correct 2. The patient was awoken from anesthesia, extubated and taken to PACU in stable condition. An abdominal binder was applied. The patient's daughter was notified over the telephone of her stable condition.
[2017-11-09] MEDS: ABILIFY PO SCH ×2 (21:28→22:04)
[2017-11-09] MEDS: NORCO 5/325 PO SCH ×2 (21:29→22:06)
[2017-11-09] MEDS: XANAX PO SCH ×2 (21:29→22:07)
[2017-11-09] MEDS: FLAGYL 500 MG/100 ML 500 MG/100 ML BAG IV SCH ×3 (21:29→23:35)
[2017-11-09] MEDS ORDERED: ceFAZolin 2 GM in NACL 0.9% 100 ML IV SCH (22:00)
[2017-11-09] MEDS: SINGULAIR PO SCH (22:06)
[2017-11-09] MEDS: PROTONIX IV SCH (22:07)
[2017-11-09] MEDS: WELLBUTRIN XL PO SCH (22:08)
[2017-11-09] MEDS: ANCEF/STERILE WATER 2 GM/20 ML 2 GM/20 ML SYRINGE IV SCH (23:43)
[2017-11-09] MEDS: MORPHINE IV PRN (23:47)
[2017-11-10] MEDS: PERCOCET 5/325 PO PRN (03:36)
[2017-11-10] MEDS: PROVENTIL IH PRN (03:40)
[2017-11-10] MEDS: TYLENOL PO PRN ×3 (04:58→23:24)
[2017-11-10 04:59] LABS: Basophils % (Auto) 0.2 % (0.0-1.8); Eosinophils % (Auto) 0.1 % (0.0-4.3); Hematocrit 28.8 % (30.3-42.9); Hemoglobin 8.7 gm/dl (10.1-14.3); Lymphocytes # (Auto) 0.5 K/mm3 (1.2-5.4); Lymphocytes % (Auto) 5.3 % (13.4-35.0); Mean Corpuscular HGB Conc 30 % (30-34); Mean Corpuscular Hemoglobin 21 pg (28-32); Mean Corpuscular Volume 71 fl (79-97); Monocytes # (Auto) 0.7 K/mm3 (0.0-0.8); Monocytes % (Auto) 7.5 % (0.0-7.3); Platelet Count 116 K/mm3 (140-440); Red Blood Count 4.07 M/mm3 (3.65-5.03); Red Cell Distribution Width 16.4 % (13.2-15.2)
[2017-11-10] MEDS: MORPHINE IV PRN ×2 (04:59→11:37)
[2017-11-10] MEDS: FLAGYL 500 MG/100 ML 500 MG/100 ML BAG IV SCH ×2 (05:06→05:09)
[2017-11-10 05:17] LABS: BUN/Creatinine Ratio 16; Blood Urea Nitrogen 11 mg/dL (7-17); Calcium 7.2 mg/dL (8.4-10.2); Hemolysis Index 0
[2017-11-10] MEDS: ANCEF/STERILE WATER 2 GM/20 ML 2 GM/20 ML SYRINGE IV SCH (06:17)
[2017-11-10] MEDS: PULMICORT IH SCH ×2 (08:23→19:47)
[2017-11-10] MEDS: BROVANA NEBU IH SCH ×2 (08:23→19:47)
[2017-11-10] MEDS: NORCO 5/325 PO SCH ×2 (08:59→13:32)
[2017-11-10] MEDS: XANAX PO SCH ×2 (09:00→21:38)
[2017-11-10] MEDS: ABILIFY PO SCH ×2 (09:00→21:39)
[2017-11-10] MEDS: LOVENOX SUB-Q SCH (09:00)
[2017-11-10] MEDS: PROTONIX IV SCH (09:00)
[2017-11-10] MEDS: SODIUM CHLORIDE FLUSH SYRINGE 10 ML IV SCH ×2 (09:04→23:26)
[2017-11-10] MEDS: WELLBUTRIN XL PO SCH (09:04)
[2017-11-10] MEDS: LACTATED RINGERS 1,000 ML IV SCH (10:20)
--- NOTE | 2017-11-10 14:17 | Progress Note ---
Assessment and Plan 47 yo F s/p Robotic assisted laparoscopic lysis of adhesions, reduction of incarcerated ventral hernias, repair of ventral hernias with mesh. POD 1 Plan: 1. adv to reg diet 2. dc IVF 3. dc IV pain meds, c/w PRN PO pain control. Will change to tramadol PO 4. OOB/ambulate - this was stressed to the patient 5. incentive spirometry - I personally instructed the patient on how to use spirometer and encouraged use 10x/hour 6. SCIPs abx 7. DVT ppx - SCDS, lovenox 8. If patient is ambulating, tolerating a diet, and pain controlled with PO pain meds in am, she will be cleared for dc from surgery standpoint. D/W Dr. Mccormick Subjective Date of service: 11/10/17 Narrative: Pt seen and examined. c/o mild abd pain over left side of abdomen. She has not been OOB. Her parkinson was removed this am. Tm 101 overnight. She tolerated liquid diet and is passing flatus. Objective Vital Signs - 12hr 11/10/17 11/10/17 11/10/17 03:15 03:38 04:30 Temperature 101.1 F H Pulse Rate 105 H Pulse Rate [ 100 H 105 H Anterior] Respiratory 24 Rate Respiratory 20 20 Rate [Anterior] Blood Pressure Blood Pressure 100/48 [Left] O2 Sat by Pulse 96 Oximetry 11/10/17 11/10/17 11/10/17 05:48 06:56 07:29 Temperature 99.7 F H Pulse Rate 104 H 99 H 101 H Pulse Rate [ Anterior] Respiratory 22 Rate Respiratory Rate [Anterior] Blood Pressure 99/46 Blood Pressure [Left] O2 Sat by Pulse 93 95 93 Oximetry 11/10/17 11/10/17 11/10/17 07:31 08:15 08:35 Temperature 99.9 F H Pulse Rate 100 H Pulse Rate [ 98 H 104 H Anterior] Respiratory 20 Rate Respiratory 18 20 Rate [Anterior] Blood Pressure 108/52 Blood Pressure [Left] O2 Sat by Pulse 93 Oximetry 11/10/17 11/10/17 10:00 11:50 Temperature 99.6 F Pulse Rate 96 H Pulse Rate [ Anterior] Respiratory 19 Rate Respiratory Rate [Anterior] Blood Pressure 104/56 Blood Pressure [Left] O2 Sat by Pulse 99 93 Oximetry - General physical appearance Narrative Exam: Gen: AAOx3. NAD. Sleepy CV: S1, S2+ Resp: No audible wheezes. Abd: soft, NT, ND. incisions c/d/i. Abd binder in place Ext: no c/c/e - Labs 11/10/17 04:25 11/10/17 04:25 Diabetes panel 11/10/17 Range/Units 04:25 Sodium 135 L (137-145) mmol/L Potassium 4.4 (3.6-5.0) mmol/L Chloride 97.6 L (98-107) mmol/L Carbon Dioxide 27 (22-30) mmol/L BUN 11 (7-17) mg/dL Creatinine 0.7 (0.7-1.2) mg/dL Glucose 153 H (65-100) mg/dL Calcium 7.2 L (8.4-10.2) mg/dL Calcium panel 11/10/17 Range/Units 04:25 Calcium 7.2 L (8.4-10.2) mg/dL Pituitary panel 11/10/17 Range/Units 04:25 Sodium 135 L (137-145) mmol/L Potassium 4.4 (3.6-5.0) mmol/L Chloride 97.6 L (98-107) mmol/L Carbon Dioxide 27 (22-30) mmol/L BUN 11 (7-17) mg/dL Creatinine 0.7 (0.7-1.2) mg/dL Glucose 153 H (65-100) mg/dL Calcium 7.2 L (8.4-10.2) mg/dL Adrenal panel 11/10/17 Range/Units 04:25 Sodium 135 L (137-145) mmol/L Potassium 4.4 (3.6-5.0) mmol/L Chloride 97.6 L (98-107) mmol/L Carbon Dioxide 27 (22-30) mmol/L BUN 11 (7-17) mg/dL Creatinine 0.7 (0.7-1.2) mg/dL Glucose 153 H (65-100) mg/dL Calcium 7.2 L (8.4-10.2) mg/dL
--- NOTE | 2017-11-10 14:48 | Progress Note ---
Assessment and Plan Assessment and plan: 47 yo F with hx of asthma, COPD, obesity presents to ER from psychiatric facility for abdominal pain. She states she has had a left sided abdominal hernia for 1 year. She has been having low grade fevers and was also recently diagnosed with a UTI for which she has been on bactrim for 2 days. Patient has been in the psychiatric facility for the last week for suicidal ideations. Currently she does not admit to wanting to hurt herself. In the ER workup showed incarcerated ventral hernia with elevated white count tachycardia and tachypnea Umbilical hernia, incarcerated - Surgery consulted, first postop day secondary to lysis of adhesions and repair of hernia - Patient advised to ambulate - Started on diet, DC the IV pain medicine SIRS (systemic inflammatory response syndrome) - Likely due to the incarcerated hernia - DC the IV antibiotics Acute Respiratory failure - Likely from asthma exacerbation - Suplemental oxygen, nebulizer therapy, aspiration precautions Acute Asthma exacerbation - Continue supplemental oxygen, nebulizer therapy, inhaled steroids DVT prophylaxis - Lovenox Disposition - Possible discharge tomorrow. History Interval history: Patient was seen and evaluated this morning, first postoperative day after lysis of adhesion and hernia repair. Hospitalist Physical - Physical exam Narrative exam: Not in cardiopulmonary distress. The patient is morbidly obese. Vital signs as documented. Head exam is unremarkable. No scleral icterus . Neck is without jugular venous distension, thyromegaly, or carotid bruits. Lungs are clear to auscultation. Cardiac exam reveals regular rate and Rhythm. Abdominal exam reveals normal bowel sounds, clean dressing. Extremities are nonedematous and both femoral and pedal pulses are normal. CLOTH INSPECTOR: Alert and oriented 3. No focal weakness. - Constitutional Vitals: Temp Pulse Resp BP Pulse Ox 99.6 F 96 H 19 104/56 93 11/10/17 11:50 11/10/17 11:50 11/10/17 11:50 11/10/17 11:50 11/10/17 11:50 General appearance: Present: mild distress, obese Results - Labs CBC & Chem 7: 11/10/17 04:25 11/10/17 04:25 Labs: Laboratory Last Values WBC 9.1 K/mm3 (4.5-11.0) 11/10/17 04:25 RBC 4.07 M/mm3 (3.65-5.03) 11/10/17 04:25 Hgb 8.7 gm/dl (10.1-14.3) L 11/10/17 04:25 Hct 28.8 % (30.3-42.9) L 11/10/17 04:25 MCV 71 fl (79-97) L 11/10/17 04:25 MCH 21 pg (28-32) L 11/10/17 04:25 MCHC 30 % (30-34) 11/10/17 04:25 RDW 16.4 % (13.2-15.2) H 11/10/17 04:25 Plt Count 116 K/mm3 (140-440) L 11/10/17 04:25 Lymph % (Auto) 5.3 % (13.4-35.0) L 11/10/17 04:25 [place] % (Auto) 7.5 % (0.0-7.3) H 11/10/17 04:25 Eos % (Auto) 0.1 % (0.0-4.3) 11/10/17 04:25 Baso % (Auto) 0.2 % (0.0-1.8) 11/10/17 04:25 Lymph # 0.5 K/mm3 (1.2-5.4) L 11/10/17 04:25 [place] # 0.7 K/mm3 (0.0-0.8) 11/10/17 04:25 Eos # 0.0 K/mm3 (0.0-0.4) 11/10/17 04:25 Baso # 0.0 K/mm3 (0.0-0.1) 11/10/17 04:25 Seg Neutrophils % 86.9 % (40.0-70.0) H 11/10/17 04:25 Seg Neutrophils # 7.9 K/mm3 (1.8-7.7) H 11/10/17 04:25 Sodium 135 mmol/L (137-145) L 11/10/17 04:25 Potassium 4.4 mmol/L (3.6-5.0) 11/10/17 04:25 Chloride 97.6 mmol/L (98-107) L 11/10/17 04:25 Carbon Dioxide 27 mmol/L (22-30) 11/10/17 04:25 Anion Gap 15 mmol/L 11/10/17 04:25 BUN 11 mg/dL (7-17) 11/10/17 04:25 Creatinine 0.7 mg/dL (0.7-1.2) 11/10/17 04:25 Estimated GFR > 60 ml/min 11/10/17 04:25 BUN/Creatinine Ratio 16 % 11/10/17 04:25 Glucose 153 mg/dL (65-100) H 11/10/17 04:25 Calcium 7.2 mg/dL (8.4-10.2) L 11/10/17 04:25 Total Bilirubin 0.60 mg/dL (0.1-1.2) 11/08/17 13:05 AST 23 units/L (5-40) 11/08/17 13:05 ALT 18 units/L (7-56) 11/08/17 13:05 Alkaline Phosphatase 48 units/L (35-129) 11/08/17 13:05 Total Protein 6.5 g/dL (6.3-8.2) 11/08/17 13:05 Albumin 3.5 g/dL (3.9-5) L 11/08/17 13:05 Albumin/Globulin Ratio 1.2 % 11/08/17 13:05 Lipase 11 units/L (13-60) L 11/08/17 13:05 Urine Color Yellow (Yellow) 11/08/17 13:16 Urine Turbidity Clear (Clear) 11/08/17 13:16 Urine pH 8.0 (5.0-7.0) H 11/08/17 13:16 Ur Specific [place] 1.015 (1.003-1.030) 11/08/17 13:16 Urine Protein <15 mg/dl mg/dL (Negative) 11/08/17 13:16 Urine Glucose (UA) Neg mg/dL (Negative) 11/08/17 13:16 Urine Ketones Neg mg/dL (Negative) 11/08/17 13:16 Urine Blood Neg (Negative) 11/08/17 13:16 Urine Nitrite Neg (Negative) 11/08/17 13:16 Urine Bilirubin Neg (Negative) 11/08/17 13:16 Urine Urobilinogen < 2.0 mg/dL (<2.0) 11/08/17 13:16 Ur Leukocyte Esterase Tr (Negative) 11/08/17 13:16 Urine WBC (Auto) 2.0 /HPF (0.0-6.0) 11/08/17 13:16 Urine RBC (Auto) 2.0 /HPF (0.0-6.0) 11/08/17 13:16 U Epithel Cells (Auto) 2.0 /HPF (0-13.0) 11/08/17 13:16 Urine Bacteria (Auto) 1+ /HPF (Negative) 11/08/17 13:16
[2017-11-10] MEDS: SINGULAIR PO SCH (17:23)
[2017-11-10] MEDS: ULTRAM PO PRN (23:25)
[2017-11-11] MEDS: ULTRAM PO PRN (07:20)
[2017-11-11] MEDS: PULMICORT IH SCH ×2 (08:54→19:22)
[2017-11-11] MEDS: BROVANA NEBU IH SCH ×2 (08:54→19:22)
[2017-11-11] MEDS: WELLBUTRIN XL PO SCH (09:25)
[2017-11-11] MEDS: LOVENOX SUB-Q SCH (09:25)
[2017-11-11] MEDS: ABILIFY PO SCH ×2 (09:26→21:52)
[2017-11-11] MEDS: PROTONIX PO SCH (09:26)
[2017-11-11] MEDS: XANAX PO SCH ×2 (09:26→21:53)
[2017-11-11] MEDS: SODIUM CHLORIDE FLUSH SYRINGE 10 ML IV SCH ×2 (09:43→21:53)
--- NOTE | 2017-11-11 13:33 | Progress Note ---
Assessment and Plan Assessment and plan: 47 yo F with hx of asthma, COPD, obesity presents to ER from psychiatric facility for abdominal pain. She states she has had a left sided abdominal hernia for 1 year. She has been having low grade fevers and was also recently diagnosed with a UTI for which she has been on bactrim for 2 days. Patient has been in the psychiatric facility for the last week for suicidal ideations. Currently she does not admit to wanting to hurt herself. In the ER workup showed incarcerated ventral hernia with elevated white count tachycardia and tachypnea Umbilical hernia, incarcerated - Surgery consulted, first postop day secondary to lysis of adhesions and repair of hernia - Patient advised to ambulate - Started on diet, DC the IV pain medicine SIRS (systemic inflammatory response syndrome) - Likely due to the incarcerated hernia and post op condition Acute Respiratory failure - Likely from asthma exacerbation - Suplemental oxygen, nebulizer therapy, aspiration precautions Acute Asthma exacerbation - Continue supplemental oxygen, nebulizer therapy, inhaled steroids Psych illness - Patient is on 1013 from the emergency department, patient denied suicidal ideation - Psych consulted for evaluation Deconditioning - PT consult DVT prophylaxis - Lovenox Disposition - Possible discharge tomorrow. History Interval history: Patient was seen and evaluated this morning, second postoperative day after lysis of adhesion and hernia repair. Patient was complaining pain and is not ambulating. Patient on 1013 in the ED but she denied suicidal ideation. Hospitalist Physical - Physical exam Narrative exam: Not in cardiopulmonary distress. The patient is morbidly obese. Vital signs as documented. Head exam is unremarkable. No scleral icterus . Neck is without jugular venous distension, thyromegaly, or carotid bruits. Lungs are clear to auscultation. Cardiac exam reveals regular rate and Rhythm. Abdominal exam reveals normal bowel sounds, clean dressing. Extremities are nonedematous and both femoral and pedal pulses are normal. ORCHID HAND: Alert and oriented 3. No focal weakness. - Constitutional Vitals: Temp Pulse Resp BP Pulse Ox 99.8 F H 94 H 20 102/57 93 11/11/17 03:39 11/11/17 09:01 11/11/17 09:01 11/11/17 03:39 11/11/17 08:52 General appearance: Present: mild distress, obese Results - Labs CBC & Chem 7: 11/10/17 04:25 11/10/17 04:25 Labs: Laboratory Last Values WBC 9.1 K/mm3 (4.5-11.0) 11/10/17 04:25 RBC 4.07 M/mm3 (3.65-5.03) 11/10/17 04:25 Hgb 8.7 gm/dl (10.1-14.3) L 11/10/17 04:25 Hct 28.8 % (30.3-42.9) L 11/10/17 04:25 MCV 71 fl (79-97) L 11/10/17 04:25 MCH 21 pg (28-32) L 11/10/17 04:25 MCHC 30 % (30-34) 11/10/17 04:25 RDW 16.4 % (13.2-15.2) H 11/10/17 04:25 Plt Count 116 K/mm3 (140-440) L 11/10/17 04:25 Lymph % (Auto) 5.3 % (13.4-35.0) L 11/10/17 04:25 [place] % (Auto) 7.5 % (0.0-7.3) H 11/10/17 04:25 Eos % (Auto) 0.1 % (0.0-4.3) 11/10/17 04:25 Baso % (Auto) 0.2 % (0.0-1.8) 11/10/17 04:25 Lymph # 0.5 K/mm3 (1.2-5.4) L 11/10/17 04:25 [place] # 0.7 K/mm3 (0.0-0.8) 11/10/17 04:25 Eos # 0.0 K/mm3 (0.0-0.4) 11/10/17 04:25 Baso # 0.0 K/mm3 (0.0-0.1) 11/10/17 04:25 Seg Neutrophils % 86.9 % (40.0-70.0) H 11/10/17 04:25 Seg Neutrophils # 7.9 K/mm3 (1.8-7.7) H 11/10/17 04:25 Sodium 135 mmol/L (137-145) L 11/10/17 04:25 Potassium 4.4 mmol/L (3.6-5.0) 11/10/17 04:25 Chloride 97.6 mmol/L (98-107) L 11/10/17 04:25 Carbon Dioxide 27 mmol/L (22-30) 11/10/17 04:25 Anion Gap 15 mmol/L 11/10/17 04:25 BUN 11 mg/dL (7-17) 11/10/17 04:25 Creatinine 0.7 mg/dL (0.7-1.2) 11/10/17 04:25 Estimated GFR > 60 ml/min 11/10/17 04:25 BUN/Creatinine Ratio 16 % 11/10/17 04:25 Glucose 153 mg/dL (65-100) H 11/10/17 04:25 Calcium 7.2 mg/dL (8.4-10.2) L 11/10/17 04:25 Total Bilirubin 0.60 mg/dL (0.1-1.2) 11/08/17 13:05 AST 23 units/L (5-40) 11/08/17 13:05 ALT 18 units/L (7-56) 11/08/17 13:05 Alkaline Phosphatase 48 units/L (35-129) 11/08/17 13:05 Total Protein 6.5 g/dL (6.3-8.2) 11/08/17 13:05 Albumin 3.5 g/dL (3.9-5) L 11/08/17 13:05 Albumin/Globulin Ratio 1.2 % 11/08/17 13:05 Lipase 11 units/L (13-60) L 11/08/17 13:05 Urine Color Yellow (Yellow) 11/08/17 13:16 Urine Turbidity Clear (Clear) 11/08/17 13:16 Urine pH 8.0 (5.0-7.0) H 11/08/17 13:16 Ur Specific [place] 1.015 (1.003-1.030) 11/08/17 13:16 Urine Protein <15 mg/dl mg/dL (Negative) 11/08/17 13:16 Urine Glucose (UA) Neg mg/dL (Negative) 11/08/17 13:16 Urine Ketones Neg mg/dL (Negative) 11/08/17 13:16 Urine Blood Neg (Negative) 11/08/17 13:16 Urine Nitrite Neg (Negative) 11/08/17 13:16 Urine Bilirubin Neg (Negative) 11/08/17 13:16 Urine Urobilinogen < 2.0 mg/dL (<2.0) 11/08/17 13:16 Ur Leukocyte Esterase Tr (Negative) 11/08/17 13:16 Urine WBC (Auto) 2.0 /HPF (0.0-6.0) 11/08/17 13:16 Urine RBC (Auto) 2.0 /HPF (0.0-6.0) 11/08/17 13:16 U Epithel Cells (Auto) 2.0 /HPF (0-13.0) 11/08/17 13:16 Urine Bacteria (Auto) 1+ /HPF (Negative) 11/08/17 13:16
--- NOTE | 2017-11-11 13:46 | Progress Note ---
Assessment and Plan 7 yo F s/p Robotic assisted laparoscopic lysis of adhesions, reduction of incarcerated ventral hernias, repair of ventral hernias with mesh. POD 2 Plan: 1. reg diet, add protein supplements 2. change PO pain meds to [place], no IV pain meds 3. OOB/ambulate- this was stressed to the patient again 4. incentive spirometry - encouraged use 10x/hour 5. DVT ppx - SCDS, lovenox 6. fevers likely secondary to atelectasis as patient has poor IS use. Bl cx obtained yesterday. Continue to monitor for fevers. 7. stool softeners Thank you for this consultation, please call with questions or concerns. Subjective Date of service: 11/11/17 Narrative: Pt seen and examined. c/o incisional pain. States she has been OOB and ambulated around her room. + fevers overnight. Patient not taking deep breaths. States pain is not controlled with percocet and makes her sleepy. Requesting IV morphine. Tolerated diet but has no appetite. + Flatus, no BM. Objective Vital Signs - 12hr 11/11/17 11/11/17 11/11/17 03:39 08:52 08:55 Temperature 99.8 F H Pulse Rate 95 H Pulse Rate [ 97 H Anterior] Respiratory 18 Rate Respiratory 20 Rate [Anterior] Blood Pressure 102/57 O2 Sat by Pulse 91 93 Oximetry 11/11/17 09:01 Temperature Pulse Rate Pulse Rate [ 94 H Anterior] Respiratory Rate Respiratory 20 Rate [Anterior] Blood Pressure O2 Sat by Pulse Oximetry - General physical appearance Narrative Exam: Gen: AAOx3. NAD CV: S1, s2+ resp: even and unlabored. 500cc on IS Abd: soft, ND, incisions c/d/i. +TTP in epigastric area. no r/r/g Ext: no c/c/e - Labs 11/10/17 04:25 11/10/17 04:25
[2017-11-11] MEDS: NORCO 10/325 PO PRN (15:00)
[2017-11-11] MEDS: COLACE PO SCH ×2 (16:06→21:53)
[2017-11-11] MEDS: SINGULAIR PO SCH (19:18)
[2017-11-11] MEDS: TORADOL IV SCH (19:19)
[2017-11-12] MEDS: TORADOL IV SCH ×3 (02:33→17:39)
[2017-11-12 06:47] LABS: BUN/Creatinine Ratio 22; Blood Urea Nitrogen 11 mg/dL (7-17); Calcium 7.9 mg/dL (8.4-10.2); Hemolysis Index 0
[2017-11-12] MEDS: PULMICORT IH SCH (08:43)
[2017-11-12] MEDS: BROVANA NEBU IH SCH (08:43)
[2017-11-12] MEDS: NORCO 10/325 PO PRN (09:06)
--- NOTE | 2017-11-12 09:50 | Discharge Summary ---
<MOOKIE SOUZA - Last Filed: 11/12/17 10:36> Providers - Providers Date of Admission: 11/08/17 16:28 Attending physician: CARSON TOSCANO MD 11/11/17 11:02 Physical Therapy Evaluation and Treat [CONS] Urgent Comment: Discharge on hold pending PT eval please see today Reason For Exam: Debility 11/11/17 13:09 Consult to Mental Health [CONS] Routine Reason For Exam: 1013 Place consult to:: mental health Notified:: Deb Primary care physician: MISTI THAYER Hospitalization Condition: Stable Disposition: DC-01 TO HOME OR SELFCARE Exam - Constitutional Vitals: Temp Pulse Resp BP Pulse Ox 98.7 F 91 H 20 97/56 91 11/12/17 07:37 11/12/17 09:01 11/12/17 09:01 11/12/17 07:37 11/12/17 08:46 Plan Activity: other (Avoid lifting more than 15 lbs for the next 4-6 weeks. Stay active and walk for a few minutes every hour.) Wound: open to air (May shower, pat incisions dry, do not scrub incisions. Do not submerge incisions in water until healed.), other (Wear abdominal binder at all times for the next 2 weeks. May remove to shower.) Additional Instructions: Call surgeon's office if you have fevers>100.4, any redness or drainage from incisions. Use the incentive spirometer at home 10 times every hour while awake to help exercise lungs. Follow up with: MISTI THAYER MD [Primary Care Provider] - 7 Days MOOKIE SOUZA DO [Staff Physician] - 14 Days Prescriptions: HYDROcodone/APAP 10-325 [[place] 10/325] 1 each PO Q8HR PRN #12 tablet PRN Reason: Pain <CARSON TOSCANO - Last Filed: 11/12/17 12:24> Providers - Providers Date of Admission: 11/08/17 16:28 Attending physician: CARSON TOSCANO MD 11/11/17 11:02 Physical Therapy Evaluation and Treat [CONS] Urgent Comment: Discharge on hold pending PT eval please see today Reason For Exam: Debility 11/11/17 13:09 Consult to Mental Health [CONS] Routine Reason For Exam: 1013 Place consult to:: mental health Notified:: Deb Primary care physician: MISTI THAYER Hospitalization Reason for admission: Incarcerated hernia Hospital course: Home O2 evaluation was done, and patient needed oxygen at home but the patient declined home oxygen. Patient said she is not going to pay for home oxygen Time spent for discharge: 32 minutes - Discharge Diagnoses (1) Incarcerated ventral hernia Status: Acute (2) SIRS (systemic inflammatory response syndrome) Status: Acute (3) Umbilical hernia, incarcerated Status: Acute (4) Abdominal pain Status: Acute (5) GERD (gastroesophageal reflux disease) Status: Chronic (6) Metabolic syndrome Status: Chronic (7) Noncompliance Status: Chronic (8) Obesity Status: Chronic Qualifiers: Body mass index: BMI 45.0-49.9 Core Measure Documentation - Palliative Care Palliative Care/ Comfort Measures: Not Applicable - Core Measures Any of the following diagnoses?: none Exam - Physical Exam Narrative exam: Not in cardiopulmonary distress. The patient is morbidly obese. Vital signs as documented. Head exam is unremarkable. No scleral icterus . Neck is without jugular venous distension, thyromegaly, or carotid bruits. Lungs are clear to auscultation. Cardiac exam reveals regular rate and Rhythm. Abdominal exam reveals normal bowel sounds, clean dressing. Extremities are nonedematous and both femoral and pedal pulses are normal. VP BIOLOGY: Alert and oriented 3. No focal weakness. - Constitutional Vitals: Temp Pulse Resp BP Pulse Ox 98.7 F 91 H 20 97/56 91 11/12/17 07:37 11/12/17 09:01 11/12/17 09:01 11/12/17 07:37 11/12/17 08:46 Plan Activity: advance as tolerated Weight Bearing Status: Full Weight Bearing Diet: low fat, low cholesterol
[2017-11-12] MEDS: PROTONIX PO SCH (10:41)
[2017-11-12] MEDS: WELLBUTRIN XL PO SCH (10:41)
[2017-11-12] MEDS: XANAX PO SCH (10:41)
[2017-11-12] MEDS: COLACE PO SCH (10:41)
[2017-11-12] MEDS: ABILIFY PO SCH (10:41)
[2017-11-12] MEDS: SODIUM CHLORIDE FLUSH SYRINGE 10 ML IV SCH (10:42)
[2017-11-12] MEDS: LOVENOX SUB-Q SCH (10:42)
--- NOTE | 2017-11-12 13:04 | Progress Note ---
Assessment and Plan 47 yo F s/p Robotic assisted laparoscopic lysis of adhesions, reduction of incarcerated ventral hernias, repair of ventral hernias with mesh. POD 3 Plan: 1. reg diet, add protein supplements 2. PO pain meds 3. OOB/ambulate 4. incentive spirometry -will be sent home with patient 5. DVT ppx - SCDS, lovenox 6. afebrile x 24 hours 7. stool softeners PRN 8. ok to dc from surgery standpoint, patient given verbal and written post surgical instructions. Follow up in surgery office in 2 weeks D/W Dr. Mccormick Thank you for this consultation, please call with questions or concerns. Subjective Date of service: 11/12/17 Narrative: Pt seen and examined. In great spirits today. States she feels much better. Tolerating a diet. Pain is decreased and well controlled with PO pain meds. No n /v. NO f/c for 24 hours. She is ambulating on her own. Objective Vital Signs - 12hr 11/12/17 11/12/17 11/12/17 04:19 07:37 08:43 Temperature 98.8 F 98.7 F Pulse Rate 93 H 91 H Pulse Rate [ 94 H Anterior] Respiratory 20 24 Rate Respiratory 18 Rate [Anterior] Blood Pressure 95/51 97/56 O2 Sat by Pulse 87 91 Oximetry 11/12/17 11/12/17 08:46 09:01 Temperature Pulse Rate Pulse Rate [ 91 H Anterior] Respiratory Rate Respiratory 20 Rate [Anterior] Blood Pressure O2 Sat by Pulse 91 Oximetry - General physical appearance Narrative Exam: Gen: AAOx3. NAD CV: S1, s2+ Resp: even and unlabored abd: soft, NT, ND. incisions c/d/i. Abd binder in place. Ext: no c/c/e - Labs 11/10/17 04:25 11/12/17 05:53 Diabetes panel 11/12/17 Range/Units 05:53 Sodium 139 (137-145) mmol/L Potassium 3.8 (3.6-5.0) mmol/L Chloride 99.1 (98-107) mmol/L Carbon Dioxide 29 (22-30) mmol/L BUN 11 (7-17) mg/dL Creatinine 0.5 L (0.7-1.2) mg/dL Glucose 105 H (65-100) mg/dL Calcium 7.9 L (8.4-10.2) mg/dL Calcium panel 11/12/17 Range/Units 05:53 Calcium 7.9 L (8.4-10.2) mg/dL Pituitary panel 11/12/17 Range/Units 05:53 Sodium 139 (137-145) mmol/L Potassium 3.8 (3.6-5.0) mmol/L Chloride 99.1 (98-107) mmol/L Carbon Dioxide 29 (22-30) mmol/L BUN 11 (7-17) mg/dL Creatinine 0.5 L (0.7-1.2) mg/dL Glucose 105 H (65-100) mg/dL Calcium 7.9 L (8.4-10.2) mg/dL Adrenal panel 11/12/17 Range/Units 05:53 Sodium 139 (137-145) mmol/L Potassium 3.8 (3.6-5.0) mmol/L Chloride 99.1 (98-107) mmol/L Carbon Dioxide 29 (22-30) mmol/L BUN 11 (7-17) mg/dL Creatinine 0.5 L (0.7-1.2) mg/dL Glucose 105 H (65-100) mg/dL Calcium 7.9 L (8.4-10.2) mg/dL
[2017-11-12 17:02] VITALS: BP 108/49
[2017-11-12] MEDS: SINGULAIR PO SCH (17:39)
== END 2017-11-12 18:30 | disposition home or self-care (01) | DRG 353 ==
LOC: ED 11:52 → 3A 16:28
PROVIDERS: ADMIT Internal Medicine; ATTEND Internal Medicine
PROC: 0WUF4JZ Supplement Abdominal Wall with Synthetic Substitute, Percutaneous Endoscopic Approach (ICD-10-PCS; principal; 2017-11-09)
PROC: 8E0W4CZ Robotic Assisted Procedure of Trunk Region, Percutaneous Endoscopic Approach (ICD-10-PCS; 2017-11-09)
DX: K43.6 Other and unspecified ventral hernia with obstruction, without gangrene (principal); J96.00 Acute respiratory failure, unspecified whether with hypoxia or hypercapnia; J45.901 Unspecified asthma with (acute) exacerbation; R65.10 Systemic inflammatory response syndrome (SIRS) of non-infectious origin without acute organ dysfunction; Z68.42 Body mass index [BMI] 45.0-49.9, adult; K42.0 Umbilical hernia with obstruction, without gangrene; K21.9 Gastro-esophageal reflux disease without esophagitis; E88.81 Metabolic syndrome and other insulin resistance; E66.9 Obesity, unspecified; M19.90 Unspecified osteoarthritis, unspecified site; D64.9 Anemia, unspecified; Z90.49 Acquired absence of other specified parts of digestive tract; Z91.19 Patient's noncompliance with other medical treatment and regimen; Z82.49 Family history of ischemic heart disease and other diseases of the circulatory system; Z79.899 Other long term (current) drug therapy
CPT/HCPCS: 36415; 71045; 74176; 80048; 80053; 81001; 83690; 85025; 87040; 94640; 94760; 96374; 96375; C1781; C9113; J0456; J0690; J0696; J1170; J1650; J1885; J2250; J2270; J2370; J2405; J2704; J2710; J3010; J7050; J7120

== ENCOUNTER 2017-12-08 01:01 | Inpatient (IN) | payer OTHER ==
[2017-12-08] MEDS ORDERED: ZOFRAN IV PRN (03:43)
[2017-12-08] MEDS ORDERED: SODIUM CHLORIDE FLUSH SYRINGE 10 ML IV PRN (03:43)
[2017-12-08] MEDS ORDERED: TYLENOL PO PRN (03:43)
--- NOTE | 2017-12-08 03:51 | History and Physical Report ---
History of Present Illness Date of examination: 12/08/17 History of present illness: 47-year-old woman with a history of COPD, obesity, status post hernia repair one month ago was transfer from [facility] today for evaluation of abdominal pain. The patient had surgery one month ago for incarcerated hernia, she did not follow up with her surgeon. [facility]. She had a CAT scan done on which showed fluid around the surgical site, she was discharged on Augmentin and she completed. She returned on December 01 for worsening abdominal pain , there was no change in the fluid collection, surgical consult was obtained. The patient had another CAT scan of the abdomen done today show possible abscess. She was given 1 dose of Zosyn there. Patient stated that she has been having low-grade fevers at home Review of systems Constitutional: no weight loss, chills Ears, eyes, nose, mouth and throat: no nasal congestion, no nasal discharge, no sinus pressure, no vision change, no red eye. Neck: No neck pain or rigidity. Cardiovascular: no chest pain, palpitations Respiratory: No cough, shortness of breath Gastrointestinal: no hematochezia Genitourinary : no dysuria, frequency , no hematuria Musculoskeletal: no joint swelling or muscle ache Integumentary: no rash, no pruritis Neurological: no parathesias, no numbness, no focal weakness Endocrine: no cold or heat intolerance, no polyuria or polydipsia Hematologic/Lymphatic: no easy bruising, no easy bleeding, no gland swelling Allergic/Immunologic: no urticaria, no angioedema. PAST MEDICAL HISTORY:COPD, obesity PAST SURGICAL HISTORY: Cholecystectomy, hernia repair SOCIAL HISTORY: Social alcohol, no tobacco or drugs FAMILY HISTORY: Hypertension Medications and Allergies Allergies Allergy/AdvReac Type Severity Reaction Status Date / Time methylprednisolone sodium Allergy Hives Verified 11/15/15 07:55 succinate [From Solu-Medrol] moxifloxacin HCl Allergy Hives Verified 11/15/15 07:55 [From Avelox] Home Medications Medication Instructions Recorded Confirmed Last Taken Type Fluticasone/Salmeterol [Advair 1 puff IH BID #1 disk.w.dev 08/17/16 11/08/17 Unknown Rx Diskus 250-50 mcg] ALPRAZolam [Xanax] 1 mg PO BID 11/08/17 11/08/17 Unknown History ARIPiprazole [Abilify] 5 mg PO BID 11/08/17 11/08/17 Unknown History Furosemide [Lasix TAB] 20 mg PO QDAY 11/08/17 11/08/17 Unknown History Omeprazole 40 mg PO QAM 11/08/17 11/08/17 Unknown History buPROPion XL [Wellbutrin XL] 150 mg PO QAM 11/08/17 11/08/17 Unknown History HYDROcodone/APAP 10-325 [[place] 1 each PO Q8HR PRN #12 tablet 11/12/17 Unknown Rx 10/325] Exam - Physical Exam Narrative exam: Gen. appearance: Patient lying in bed, no apparent distress HEENT: Normocephalic, atraumatic, pupils equally round and reactive to light, extraocular movement intact, and no sclericterus,. No JVD or thyromegaly or nodule,neck supple, no carotid bruit ,mucous membranes moist, no exudate or erythema Heart: S1, S2, regular rate and rhythm Lungs: Clear to auscultation bilaterally, breathing comfortable Abdomen: Positive bowel sounds, tender in the left lower quadrant and lower mid abdomen, nondistended, no organomegaly Extremity: No edema, cyanosis, clubbing Skin: No rash, nodules, warm, dry Neuro: Oriented 3, cranial nerves II-12 intact, speech is fluent, motor and sensory intact Assessment and Plan CBC, Chem-7 were reviewed from [facility] Assessment Abdominal pain with possible underlying abscess COPD Morbid obesity Thrombocytopenia Plan Admit to medicine Start IV fluid, IV morphine, Zosyn, consult surgery DVT prophylaxis
[2017-12-08] MEDS ORDERED: NACL 0.45% 1000 ML 1,000 ML IV SCH (04:00)
[2017-12-08] MEDS: MORPHINE IV PRN ×2 (04:20→10:41)
[2017-12-08] MEDS ORDERED: PROVENTIL IH PRN (04:57)
[2017-12-08] MEDS: DUONEB *Not for PRN Use IH SCH ×4 (05:11→20:27)
[2017-12-08] MEDS: ZOSYN/NS 4.5GM/100ML 4.5 GM/100 ML VIAL IV SCH ×2 (05:28→14:10)
[2017-12-08 05:56] LABS: Hematocrit 29.3 % (30.3-42.9); Mean Corpuscular HGB Conc 31 % (30-34); Platelet Count 112 K/mm3 (140-440); Red Blood Count 4.26 M/mm3 (3.65-5.03); Red Cell Distribution Width 17.1 % (13.2-15.2)
[2017-12-08 06:07] LABS: Mean Corpuscular Hemoglobin 21 pg (28-32); Mean Corpuscular Volume 69 fl (79-97)
[2017-12-08 06:20] LABS: BUN/Creatinine Ratio 11; Blood Urea Nitrogen 8 mg/dL (7-17); Calcium 8.4 mg/dL (8.4-10.2); Hemolysis Index 0
[2017-12-08 07:05] LABS: Anisocytosis 2+; Total Cells Counted 100
[2017-12-08 07:06] LABS: Acanthocytes Rare; Helmet Cells Rare; Ovalocytes 1+; Platelet Estimate Appears Decreased
--- NOTE | 2017-12-08 10:12 | Consultation ---
History of Present Illness Consult date: 12/08/17 Chief complaint: abd pain - History of present illness History of present illness: 47 yo F with hx of obesity, COPD, and recent Robotic assisted laparoscopic ventral/incisional hernia repair with mesh on 11/09/17 presents to hospital with c /o abdominal pain. The patients was discharged on POD 2 with an unremarkable post op course. The patient did not follow up for post op check up and was called by my office 2 weeks post op to schedule a visit. At the time she communicated that she felt well and did not have transportation available to bring her to the office. She did not call the office again with any complaints or concerns. The patient however has been presenting to [facility] a total of 4 times in the last several weeks with c/o abdominal pain per ER physician. She has had multiple CT scans, lab work, and has been sent home with abx. She c/o persistent LLQ abdominal pain over the site of the hernia. Pain is sharp, intermittent, and does not radiate. She has been taking ibuprofen 800mg for the pain and states it does not help. She wore her abdominal binder for 1 week post op. She states she was having fevers during the first post op week of up to 101 but has not had fevers since. 1 episode of nonbloody/nonbilious emesis yesterday due to pain. Patient has hx of chronic opiate use for long standing hx of pain from multiple abdominal wall hernias. Surgeon's at OSH requested patient to be transferred to [facility] where her surgery was performed. NO CP, SOB Past History Past Medical History: COPD, other (asthma, anxiety, obesity, hx of suicidal ideations) Past Surgical History: , hysterectomy, hernia repair (exlap for incarcerated hernia), Other Social history: alcohol abuse (social). denies: smoking Family history: no significant family history Medications and Allergies Allergies Allergy/AdvReac Type Severity Reaction Status Date / Time methylprednisolone sodium Allergy Hives Verified 11/15/15 07:55 succinate [From Solu-Medrol] moxifloxacin HCl Allergy Hives Verified 11/15/15 07:55 [From Avelox] Home Medications Medication Instructions Recorded Confirmed Last Taken Type Fluticasone/Salmeterol [Advair 1 puff IH BID #1 disk.w.dev 08/17/16 11/08/17 Unknown Rx Diskus 250-50 mcg] ALPRAZolam [Xanax] 1 mg PO BID 11/08/17 11/08/17 Unknown History ARIPiprazole [Abilify] 5 mg PO BID 11/08/17 11/08/17 Unknown History Furosemide [Lasix TAB] 20 mg PO QDAY 11/08/17 11/08/17 Unknown History Omeprazole 40 mg PO QAM 11/08/17 11/08/17 Unknown History buPROPion XL [Wellbutrin XL] 150 mg PO QAM 11/08/17 11/08/17 Unknown History HYDROcodone/APAP 10-325 [[place] 1 each PO Q8HR PRN #12 tablet 11/12/17 Unknown Rx 10/325] Active Meds: Active Medications Acetaminophen (Tylenol) 650 mg PO Q4H PRN PRN Reason: Pain MILD(1-3)/Fever >100.5/MELENDEZ Albuterol (Proventil) 2.5 mg IH Q4HRT PRN PRN Reason: Shortness Of Breath Albuterol/Ipratropium (Duoneb *Not For Prn Use*) 1 ampul IH Q6HRT SPEEDY Last Admin: 12/08/17 09:11 Dose: 1 ampul Sodium Chloride (Nacl 0.45% 1000 Ml) 1,000 mls @ 75 mls/hr IV DIRECT SPEEDY Last Admin: 12/08/17 05:20 Dose: 75 mls/hr Piperacillin Sod/Tazobactam Sod (Zosyn/Ns 4.5gm/100ml) 4.5 gm in 100 mls @ 200 mls/hr IV Q8HR SPEEDY; Protocol Last Admin: 12/08/17 05:28 Dose: 200 mls/hr Morphine Sulfate (Morphine) 2 mg IV Q4H PRN PRN Reason: Pain, Moderate (4-6) Last Admin: 12/08/17 04:20 Dose: 2 mg Ondansetron HCl (Zofran) 4 mg IV Q8H PRN PRN Reason: Nausea And Vomiting Last Admin: 12/08/17 05:20 Dose: 4 mg Sodium Chloride (Sodium Chloride Flush Syringe 10 Ml) 10 ml IV BID SPEEDY Sodium Chloride (Sodium Chloride Flush Syringe 10 Ml) 10 ml IV PRN PRN PRN Reason: LINE FLUSH Review of Systems All systems: negative (10 point ROS performed and negative except for that listed in HPI) Exam Vital Signs Pulse Ox 100 12/08/17 04:50 Narrative exam: Gen: AAOx3. NAD. ENT: no scleral icterus or conjunctival pallor CV: S1, S2+ Resp: even and unlabored Abd: soft, obese, ND, + TTP supraumbilical and LLQ over bulges. No erythema, skin changes, cellulitis. No r/r/g. Surgical sites healed well. Ext: no c/c/e Results - Labs 12/08/17 05:42 12/08/17 05:42 Abnormal lab results 12/08/17 12/08/17 Range/Units 05:42 05:42 Hgb 9.0 L (10.1-14.3) gm/dl Hct 29.3 L (30.3-42.9) % MCV 69 L (79-97) fl MCH 21 L (28-32) pg RDW 17.1 H (13.2-15.2) % Plt Count 112 L (140-440) K/mm3 Seg Neuts % (Manual) 28.0 L (40.0-70.0) % Eosinophils % (Manual) 42.0 H (0.0-4.3) % Basophils % (Manual) 2.0 H (0.0-1.8) % Seg Neutrophils # Man 1.5 L (1.8-7.7) K/mm3 Eosinophils # (Manual) 2.3 H (0.0-0.4) K/mm3 Potassium 3.3 L (3.6-5.0) mmol/L Glucose 139 H (65-100) mg/dL Diabetes panel 12/08/17 Range/Units 05:42 Sodium 140 (137-145) mmol/L Potassium 3.3 L (3.6-5.0) mmol/L Chloride 101.4 (98-107) mmol/L Carbon Dioxide 26 (22-30) mmol/L BUN 8 (7-17) mg/dL Creatinine 0.7 (0.7-1.2) mg/dL Glucose 139 H (65-100) mg/dL Calcium 8.4 (8.4-10.2) mg/dL Calcium panel 12/08/17 Range/Units 05:42 Calcium 8.4 (8.4-10.2) mg/dL Pituitary panel 12/08/17 Range/Units 05:42 Sodium 140 (137-145) mmol/L Potassium 3.3 L (3.6-5.0) mmol/L Chloride 101.4 (98-107) mmol/L Carbon Dioxide 26 (22-30) mmol/L BUN 8 (7-17) mg/dL Creatinine 0.7 (0.7-1.2) mg/dL Glucose 139 H (65-100) mg/dL Calcium 8.4 (8.4-10.2) mg/dL Adrenal panel 12/08/17 Range/Units 05:42 Sodium 140 (137-145) mmol/L Potassium 3.3 L (3.6-5.0) mmol/L Chloride 101.4 (98-107) mmol/L Carbon Dioxide 26 (22-30) mmol/L BUN 8 (7-17) mg/dL Creatinine 0.7 (0.7-1.2) mg/dL Glucose 139 H (65-100) mg/dL Calcium 8.4 (8.4-10.2) mg/dL - Imaging CT scan - abdomen: report reviewed, image reviewed CT scan - pelvis: report reviewed, image reviewed Assessment and Plan 47 yo F with abdominal pain, abdominal wall fluid collections. CT A/P reviewed from OSH. Multiple fluid collections of abdominal wall. These areas are consistent with patient's multiple hernia defects. Collections have no air in them and appears consistent with post op seromas. The patient has been afebrile and WBC is normal without shift. Doubt that fluid collections are infected or represent abscess, more likely seromas. I discussed conservative treatment with the patient which will include pain control, abdominal binder, and time to allow seromas to reabsorb. However, she states that she is in too much pain. Other option is to consult IR to drain symptomatic area and see if she gets relief. However, I explained to the patient that these fluid collections are likely sterile and draining them can introduce infection and infect the mesh, leading to repeat surgery to remove mesh and other surgical procedures. She understands and is agreeable to having IR consult to evaluate for drainage. 1. PRN pain control 2. NPO 3. IR consult 4. IVF 5. strict glucose control 6. abdominal binder Thank you for this consultation, please call with questions or concerns.
[2017-12-08] MEDS: SODIUM CHLORIDE FLUSH SYRINGE 10 ML IV SCH ×2 (10:43→22:00)
[2017-12-08] MEDS ORDERED: VERSED IV ONE ×2 (14:50→15:15)
[2017-12-08] MEDS ORDERED: SUBLIMAZE ONE (14:51)
[2017-12-08] MEDS ORDERED: SUBLIMAZE IV ONE ×2 (15:15)
--- NOTE | 2017-12-08 15:39 | Cat Scan Report ---
EXAM: CT-GUIDED aspiration of ASPIRATION OF ABDOMINAL WALL FLUID COLLECTION CLINICAL INDICATION: PATIENT WITH HISTORY OF POSTOP FLUID COLLECTION DATE: 12/08/2017 RESIDUAL COLON following an explanation of the risks, benefits and alternatives; written informed consent was obtained. The patient was brought to the CT suite and placed in supine position on the gantry. Initial images of the abdomen were obtained and an appropriate access site was chosen into the multiloculated fluid collections along the anterior abdominal wall. The patient's abdominal wall was prepped and draped in the usual sterile fashion. 1% lidocaine was used for anesthesia. Using intermittent CT guidance, a 5 Irish pigtail Yueh needle was advanced into the fluid collection. The trocar was removed and a total of 120 mL's of blood-tinged serous fluid was aspirated. No purulence was identified. A sample was sent for laboratory analysis. Post drainage images were obtained which documented near complete resolution of the anterior abdominal wall fluid collections. The Yueh needle was removed and hemostasis achieved using manual compression. A sterile dressing was then placed. The patient tolerated the procedure well. There were no immediate post procedure complications. Conscious sedation was performed under the guidance of radiologic nursing. Continuous cardiopulmonary monitoring was utilized. IMPRESSION: 1) CT guided aspiration of abdominal wall fluid collection with 120 mL's of serous fluid aspirated. A sample was sent for laboratory analysis.
[2017-12-08] MEDS ORDERED: KCL 40 MEQ in NACL 0.45% 500 ML IV SCH (16:15)
[2017-12-08] MEDS: NORCO 5/325 PO PRN (18:48)
[2017-12-09] MEDS: ZOSYN/NS 4.5GM/100ML 4.5 GM/100 ML VIAL IV SCH ×3 (01:56→14:02)
[2017-12-09] MEDS ORDERED: K-DUR PO ONE (02:00)
[2017-12-09] MEDS: DUONEB *Not for PRN Use IH SCH ×3 (02:35→13:41)
[2017-12-09] MEDS: NORCO 5/325 PO PRN ×2 (07:23→12:43)
[2017-12-09] MEDS: SODIUM CHLORIDE FLUSH SYRINGE 10 ML IV SCH (10:05)
--- NOTE | 2017-12-09 10:45 | Progress Note ---
Assessment and Plan 47 yo F with abdominal pain, abdominal wall fluid collections. s/p IR drainage of seroma yesterday. 1. PRN PO pain control 2. reg diet 3. dc IVF and IV abx 4. abdominal binder at all times 5. asthma/COPD meds per 1' team, may need steroids for wheezing 6. ok to dc home from surgery standpoint. Will need case management for free clinic info in [place] to obtain PCP. Thank you for this consultation, please call with questions or concerns. Subjective Date of service: 12/09/17 Narrative: Pt seen and examined. States she feels better today. She has a cough and c/o wheezing. She has tolerated her diet. No n/v. [place] helps her pain. Objective Vital Signs - 12hr 12/09/17 12/09/17 12/09/17 00:15 02:28 02:37 Temperature 99.1 F Pulse Rate 78 Pulse Rate [ 82 85 Throughout] Respiratory 20 Rate Respiratory 16 16 Rate [ Throughout] Blood Pressure 111/55 O2 Sat by Pulse 91 Oximetry 12/09/17 12/09/17 12/09/17 05:11 07:16 07:17 Temperature 98.8 F 99.0 F Pulse Rate 73 85 89 Pulse Rate [ Throughout] Respiratory 20 20 Rate Respiratory Rate [ Throughout] Blood Pressure 110/62 110/53 110/53 O2 Sat by Pulse 98 95 97 Oximetry - General physical appearance Narrative Exam: Gen: AAOx3. NAD CV: S1, S2+ Resp: even and unlabored Abd: soft, NT, ND. Ext: no c/c/e - Labs 12/08/17 05:42 12/08/17 05:42
--- NOTE | 2017-12-09 16:03 | Discharge Summary ---
Providers - Providers Date of Admission: 12/08/17 03:51 Attending physician: JO ANN SANTANA MD 12/08/17 03:43 Consult to Physician [CONS] Routine Comment: Consulting Provider: MOOKIE SOUZA Physician Instructions: Reason For Exam: abd pain 12/08/17 10:07 Consult to Interventional Radiology [CONS] Routine Consulting Provider: VINEET FRANCES Reason For Exam: abdominal wall fluid collections, s/p hernia repai Place consult to:: DR. FRANCES Notified:: [facility] Phone number called:: [phone] Was contact made?: Yes If yes, spoke with:: EVER Time called:: 07:41 Comment:: CONSULT COMPLETED - GONZALES Primary care physician: MISTI THAYER Hospitalization Hospital course: CBC, Chem-7 were reviewed from [place] Assessment Abdominal pain with possible underlying abscess COPD Morbid obesity Thrombocytopenia Plan Admit to medicine Start IV fluid, IV morphine, Zosyn, consult surgery DVT prophylaxis Disposition: TO HOME OR SELFCARE Time spent for discharge: 33 minutes Core Measure Documentation - Palliative Care Palliative Care/ Comfort Measures: Not Applicable - Core Measures Any of the following diagnoses?: none Exam - Constitutional Vitals: Temp Pulse Resp BP Pulse Ox 99.4 F 95 H 20 108/60 94 12/09/17 12:00 12/09/17 13:51 12/09/17 13:51 12/09/17 12:00 12/09/17 12:00 General appearance: Present: no acute distress, well-nourished - EENT Eyes: Present: PERRL ENT: hearing intact, clear oral mucosa - Neck Neck: Present: supple, normal ROM - Respiratory Respiratory effort: normal Respiratory: bilateral: CTA - Cardiovascular Heart Sounds: Present: S1 & S2. Absent: rub, click - Extremities Extremities: pulses symmetrical, No edema Peripheral Pulses: within normal limits - Abdominal General gastrointestinal: Present: soft, non-tender, non-distended, normal bowel sounds Female genitourinary: Present: normal - Integumentary Integumentary: Present: clear, warm, dry - Musculoskeletal Musculoskeletal: gait normal, strength equal bilaterally - Psychiatric Psychiatric: appropriate mood/affect, intact judgment & insight - Neurologic Neurologic: CNII-XII intact, moves all extremities Plan Follow up with: MISTI THAYER MD [Primary Care Provider] - 7 Days Prescriptions: HYDROcodone/APAP 10-325 [[place] 10-325 mg TAB] 1 each PO Q8HR PRN #20 tablet PRN Reason: Pain
[2017-12-09 16:16] VITALS: BP 131/71
== END 2017-12-09 18:00 | disposition home or self-care (01) | DRG 863 ==
LOC: UNDOADMIN 01:01 → 3A 01:01 → 3B-SURG 03:51
PROVIDERS: ADMIT Internal Medicine; ATTEND Internal Medicine
DX: T81.4XXA Infection following a procedure, initial encounter (principal); K91.872 Postprocedural seroma of a digestive system organ or structure following a digestive system procedure; Z68.45 Body mass index [BMI] 70 or greater, adult; L02.211 Cutaneous abscess of abdominal wall; E66.01 Morbid (severe) obesity due to excess calories; J44.9 Chronic obstructive pulmonary disease, unspecified; D69.6 Thrombocytopenia, unspecified; Z82.49 Family history of ischemic heart disease and other diseases of the circulatory system; Z90.49 Acquired absence of other specified parts of digestive tract; Z88.1 Allergy status to other antibiotic agents; Z88.8 Allergy status to other drugs, medicaments and biological substances; J45.909 Unspecified asthma, uncomplicated; F41.9 Anxiety disorder, unspecified; Z90.710 Acquired absence of both cervix and uterus; F10.10 Alcohol abuse, uncomplicated; Y83.8 Other surgical procedures as the cause of abnormal reaction of the patient, or of later complication, without mention of misadventure at the time of the procedure; Y92.89 Other specified places as the place of occurrence of the external cause
CPT/HCPCS: 10160; 36415; 77012; 80048; 85007; 85025; 87116; 94640; J2250; J2270; J2405; J2543; J3010; J3480